=== PATIENT | female | born 1940 | race Caucasian/White ===

== ENCOUNTER 2018-10-29 12:52 | Inpatient (IN) ==
--- NOTE | 2018-10-29 17:42 | Internal Med History&Physical ---
Date of Encounter: 10/29/18 Time of Encounter: 17:38 Internal Medicine - H&P: HPI History of present illness: Ms. Jacinto is a 78 year old female with history of CAD s/p CABG, IDDM, CKD stage III, remote lung and breast cancer, HTN, CVA s/p craniotomy presented as a transfer from [place] for evaluation of elevated troponin. Patient initially presented to [place] due to weakness and chills. She fell multiple times in the past few days. One day ago she was down for about an hour but she refused to go to hospital for evaluation. She was urged today by a caregiver to go directly for evaluation. She complains of several day history of dry cough, chills, night sweats. At [place] ED she waas found to have O2 saturation of 89% and after 3 L O2 improved to 97%. Troponin was 0.174 and patient was without chest pain. EKG showed sinus rhythm with first degree av block, and non-specific ST changes with T wave inversions in II, III, avf. She had an elevated creatinine at 2.20, and baseline is about 1.4. Lactic acid was within normal limits, afebrile, WBC borderline elevated at 11k. She was started on a heparin drip, given one liter normal saline, Xopenex, and IV protonix. Patient currently denies any CP, SOB. She still has persistent dry cough and complains of sinus congestion and rhinorrhea. Family history reviewed and non-contributory. Past Med Surg Social Fam HX - Past Medical History Medical history: CVA, diabetes, hyperlipidemia, hypertension, seizures Psychiatric history: depression - Past Surgical History Additional surgical history: brain anuerysm repair - Social History Smoking Status: Former smoker Smokeless Tobacco Status: No Alcohol use: none Drug use: none Internal Medicine - H&P: Meds Albuterol Sulfate [Albuterol Inhaler] 2 puff IH Q4HR PRN #1 hfa.aer.ad 12/06/15 [Rx] Aspirin Enteric Coated [Aspirin EC] 81 mg PO DAILY 12/06/15 [History] Citalopram Hydrobromide [Celexa] 30 mg PO DAILY 12/06/15 [History] Fluticasone Propionate Nasal [Flonase] 2 spray NS DAILY PRN 12/06/15 [History] Glimepiride [Amaryl] 4 mg PO DAILY 12/06/15 [History] LevETIRAcetam [Keppra] 750 mg PO BID 12/06/15 [History] Magnesium Oxide [Magnesium] 400 mg PO BID 12/06/15 [History] Montelukast [Singulair] 10 mg PO DAILY 12/06/15 [History] Acetaminophen [Tylenol] 1,000 mg PO PRN PRN 10/29/18 [History] Allopurinol [Zyloprim] 300 mg PO DAILY 10/29/18 [History] Atorvastatin [Lipitor] 40 mg PO HS 10/29/18 [History] Carvedilol [Coreg] 25 mg PO BID 10/29/18 [History] Cetirizine HCl [24Hour Allergy] 5 mg PO DAILY 10/29/18 [History] Ergocalciferol (VITAMIN D2) [Vitamin D2] 50,000 unit PO TU 10/29/18 [History] Gabapentin [Neurontin] 300 mg PO TID PRN 10/29/18 [History] Insulin Glargine,Hum.rec.anlog [Lantus Solostar] 45 unit SQ DAILY 10/29/18 [History] Nitroglycerin 0.3 mg SL Q5MIN PRN 10/29/18 [History] Pantoprazole Sodium [Protonix] 40 mg PO DAILY 10/29/18 [History] hydrALAZINE [HydrALAZINE] 25 mg PO BID 10/29/18 [History] Allergy/AdvReac Type Severity Reaction Status Date / Time acetaminophen [From [place]] Allergy Rash Verified 12/06/15 12:01 ciprofloxacin [From Cipro] Allergy See Verified 12/06/15 12:01 Comments codeine Allergy See Verified 12/06/15 12:01 Comments hydrocodone [From [place]] Allergy Rash Verified 12/06/15 12:01 Iodinated Contrast- Oral and Allergy See Verified 12/06/15 12:01 IV Dye Comments [Iodinated Contrast Media - IV Dye] levofloxacin [From Levaquin] Allergy See Verified 12/06/15 12:01 Comments losartan [From Cozaar] Allergy See Verified 12/06/15 12:01 Comments All Systems PM: A 10-system review of systems was performed and is negative for pertinent findings except as documented above in the HPI. - Constitutional Vitals: Temp Pulse Resp BP Pulse Ox 97.6 F 82 14 145/64 93 10/29/18 16:12 10/29/18 16:12 10/29/18 16:12 10/29/18 16:12 10/29/18 16:12 General appearance: Present: A&O X 3, no acute distress, answers questions appropriately Exam: . - Head Head exam: Present: atraumatic, normocephalic - Eye Eye exam: Present: PERRL, conjuntiva pink, sclera anicteric Pupils: Present: PERRL - ENT ENT exam: Present: mucous membranes dry Additional comments: Clear nasal discharge. - Expanded ENT Exam Mouth exam: Present: dry mucosa Throat exam: Present: normal inspection - Neck Neck exam general surgery: Present: supple, trachea midline. Absent: lymphadenopathy Additional comments: NO JVD - Respiratory Respiratory exam: Present: decreased breath sounds, wheezes. Absent: accessory muscle use, rales, rhonchi - Cardiovascular Cardiovascular exam: Present: RRR, +S1, +S2. Absent: diastolic murmur, gallop, rubs, systolic murmur - GI/Abdominal GI/Abdominal exam: Present: normal bowel sounds, soft, no peritoneal signs. Absent: distended, tenderness - Extremities Exam Extremities exam: Present: warm, radial pulses palpable and symmetrical. Absent : calf tenderness, cyanotic, pedal edema - Neurological Exam Neurological exam: Present: CN II-XII intact, oriented X3, no focal deficits. Absent: pronater drift, facial droop, speech deficit - Skin Skin exam: Present: dry, intact Internal Med - H&P Results - Labs CBC & Chem 7: 10/29/18 19:18 10/29/18 19:18 - Assessment and Plan (1) Acute respiratory failure with hypoxia Current Visit: Yes Status: Acute Assessment and plan: Patient presented to [facility] after a fall and was found to have hypoxia with O2 86% on room air then requiring 3 L O2 supplementation. She has no formally diagnosed asthma or COPD per her daughter at bedside, but does say that she takes inhalers at home for SOB. Chest x-ray at outside facility read as no acute process. She did have noted wheezing on exam, no acute respiratory distress. Does have sick contacts with recent respiratory infections as well. Will obtain CT chest without contrast for further evaluation. Obtain sputum culture, Duo Nebs prn. Does not appear to need steroids but if symptoms persist may need to start steroid therapy. Check respiratory infection panel, continue cardiac workup. Anticipate patient will be here for greater than two midnights. (2) Elevated troponin Current Visit: Yes Status: Acute Assessment and plan: EKG showed ST changes and T wave inversions with normal sinus rhythm. Troponin was 0.174 Cycle cardiac enzymes Continue Heparin drip Cardiology consultation (3) Acute on chronic kidney failure Current Visit: Yes Status: Acute Assessment and plan: Baseline creatinine is 1.4, at [place] Cr was 2.20. She follows Dr. Osuna as outpatient. Likely dehydration cause of CHRISTIAN on CKD. Continue gentle IV fluid hydration and recheck labs. CPK was within normal limits, does not appear to be rhabdo. Qualifiers: Acute renal failure type: unspecified Chronic kidney disease stage: stage 3 (moderate) Qualified Code(s): N17.9 - Acute kidney failure, unspecified; N18.3 - Chronic kidney disease, stage 3 (moderate) (4) Chronic kidney disease, stage 3 Current Visit: Yes Status: Acute (5) Weakness Current Visit: Yes Status: Acute Assessment and plan: According to daughter at bedside this is progressive. Has had multiple falls however in the last few weeks. CT head showed no acute process, did show a known remote parietal craniotomy otherwise negative. PT/OT evaluation, continue medical management of respiratory failure and monitor for improvement. (6) URI (upper respiratory infection) Current Visit: Yes Status: Acute Assessment and plan: Seems to be viral in nature, patient afebrile, WBC borderline elevated at 11k, non-toxic appearing but she does appear weak. Will check RIP and monitor vital signs. Qualifiers: URI type: unspecified viral URI Qualified Code(s): J06.9 - Acute upper respiratory infection, unspecified (7) Hypertension Current Visit: Yes Status: Acute Assessment and plan: Resume home medications once rec done. Qualifiers: Hypertension type: essential hypertension Qualified Code(s): I10 - Essential (primary) hypertension (8) GERD (gastroesophageal reflux disease) Current Visit: Yes Status: Acute Qualifiers: Esophagitis presence: esophagitis presence not specified Qualified Code(s): K21.9 - Gastro-esophageal reflux disease without esophagitis (9) Coronary artery disease Current Visit: Yes Status: Acute Assessment and plan: Resume home medications when med rec complete. Qualifiers: Coronary Disease-Associated Artery/Lesion type: [place] artery [place] vs. transplanted heart: [place] heart Associated angina: without angina Qualified Code(s): I25.10 - Atherosclerotic heart disease of [place] coronary artery without angina pectoris (10) Insulin dependent diabetes mellitus Current Visit: Yes Status: Acute Assessment and plan: Insulin sliding scale, diabetic diet Med rec pending. (11) Falls Current Visit: Yes Status: Acute Assessment and plan: According to daughter at bedside this is progressive. Has had multiple falls however in the last few weeks. CT head showed no acute process, did show a known remote parietal craniotomy otherwise negative. PT/OT evaluation, continue medical management of respiratory failure and monitor for improvement. Most recently she fell at 9 am and was down for about an hour. Not likely rhabdo since CPK done was within normal limits. She denies any history of LOC or hitting head. If patient is continued fall risk, this will need addressed should patient need any [facility] anticoagulation therapy. Qualifiers: Encounter type: initial encounter Qualified Code(s): W19.XXXA - Unspecified fall, initial encounter - Time Spent With Patient Total time spent is greater than 50% in coordination of care (as documented) at patient's floor/unit and/or counseling patient:
[2018-10-29] MEDS ORDERED: Melatonin 3 MG TABLET PO PRN (18:18)
[2018-10-29] MEDS ORDERED: Ondansetron 4 MG/2 ML VIAL IVP PRN (18:18)
[2018-10-29] MEDS ORDERED: Naloxone 0.4 MG/ML INJ IVP PRN (18:18)
[2018-10-29] MEDS ORDERED: *HR* Heparin 5,000 UNIT/ML VIAL IVP PRN ×2 (18:29)
[2018-10-29] MEDS ORDERED: *HR* Heparin 5,000 UNIT/ML VIAL IVP ONE (18:29)
[2018-10-29 19:39] LABS: Basophils % 0.1 %; Eosinophils # 0.2 K/mcL (0.0-0.6); Eosinophils % 3.5 %; Hematocrit 30.9 % (35.3-44.9); Immature Granulocytes % 0.4 % (0-4); Lymphocytes # 1.2 K/mcL (0.6-4.6); Lymphocytes % 17.9 %; Mean Corpuscular HGB Conc 32.4 g/dL (31.6-35.5); Mean Corpuscular Hemoglobin 31.3 pg (28.0-33.3); Mean Corpuscular Volume 96.6 fL (83.0-100.0); Mean Platelet Volume 10.1 fL (9.4-12.4); Monocytes # 0.4 K/mcL (0.0-1.3); Monocytes % 6.3 %; Neutrophils # 4.9 K/mcL (1.6-8.9); Platelet Count 163 K/mcL (140-400); Red Cell Distribution Width 14.3 % (11.5-14.5); Segmented Neutrophils % 71.8 %
[2018-10-29 20:00] LABS: Heparin anti-factor XA UFH 0.32 IU/mL (0.30-0.70)
[2018-10-29 20:01] LABS: Chol/HDL Ratio 3.6 (0-4.9)
[2018-10-29 20:01] LABS: INR 1.2; Prothrombin Time 13.3 Seconds (9.4-12.1)
[2018-10-29 20:03] LABS: Calcium 9.4 mg/dL (8.6-10.3); Potassium 3.8 mEq/L (3.5-5.1)
[2018-10-29 20:04] LABS: Albumin 3.7 g/dL (3.5-5.7); Albumin/Globulin Ratio 1.3 (1.1-2.2); Bilirubin,Direct 0.1 mg/dL (0.0-0.2); Bilirubin,Indirect 0.5 mg/dL (0.0-1.2); Bilirubin,Total 0.6 mg/dL (0.3-1.0); Globulin 2.8 g/dL (2.4-3.5); Total Protein 6.5 g/dL (6.4-8.9)
[2018-10-29 20:11] LABS: Troponin I 0.13 ng/mL (< 0.04)
[2018-10-29 20:17] LABS: Thyroid Stimulating Hormone 2.421 mcIU/mL (0.340-5.600)
[2018-10-29 20:26] LABS: Folate 22.1 ng/mL (3.0-16.0)
[2018-10-29] MEDS: Ipratropium/Albuterol Neb 3 ML IH SCH (21:17)
[2018-10-29] MEDS ORDERED: Fluticasone Propionate Nasal 50 MCG/SPRAY BOTTLE NS PRN (21:43)
[2018-10-29] MEDS: Heparin 25,000 UNIT/250 ML D5W 25,000 UNIT/250 ML IV.SOLN IVC SCH (21:55)
[2018-10-29] MEDS: 0.9 % Sodium Chloride 1,000 ML IVC SCH (22:02)
[2018-10-29] MEDS: hydrALAZINE 25 MG TABLET PO SCH (22:08)
[2018-10-29] MEDS: Insulin LISPRO 300 UNITS/3 ML VIAL SQ SCH (23:09)
[2018-10-30] MEDS: Ipratropium/Albuterol Neb 3 ML IH SCH ×7 (00:28→23:49)
[2018-10-30 01:57] LABS: Basophils % 0.3 %; Eosinophils # 0.3 K/mcL (0.0-0.6); Eosinophils % 3.5 %; Hematocrit 28.9 % (35.3-44.9); Hemoglobin 9.6 g/dL (11.5-15.4); Immature Granulocytes % 0.5 % (0-4); Lymphocytes # 1.2 K/mcL (0.6-4.6); Lymphocytes % 15.2 %; Mean Corpuscular HGB Conc 33.2 g/dL (31.6-35.5); Mean Corpuscular Hemoglobin 31.8 pg (28.0-33.3); Mean Corpuscular Volume 95.7 fL (83.0-100.0); Monocytes # 0.5 K/mcL (0.0-1.3); Monocytes % 6.8 %; Neutrophils # 5.8 K/mcL (1.6-8.9); Platelet Count 162 K/mcL (140-400); Red Blood Count 3.02 M/mcL (3.82-4.97); Red Cell Distribution Width 14.4 % (11.5-14.5); Segmented Neutrophils % 73.7 %
[2018-10-30 02:17] LABS: Calcium 8.8 mg/dL (8.6-10.3); Potassium 3.8 mEq/L (3.5-5.1)
[2018-10-30 07:14] LABS: Adenovirus Not Detected (Not Detect); Bordetella Pertussis Not Detected (Not Detect); Chlamydophila pneumoniae Not Detected (Not Detect); Coronavirus 229E Not Detected (Not Detect); Coronavirus HKU1 Not Detected (Not Detect); Coronavirus NL63 Not Detected (Not Detect); Coronavirus OC43 Not Detected (Not Detect); Human Metapneumovirus Not Detected (Not Detect); Human Rhinovirus/Enterovirus Not Detected (Not Detect); Influenza A Subtype 2009 H1 Not Detected (Not Detect); Influenza A Untypeable Not Detected (Not Detect); Influenza B Not Detected (Not Detect); Mycoplasma pneumoniae Not Detected (Not Detect); Parainfluenza Virus 1 Not Detected (Not Detect); Parainfluenza Virus 2 Not Detected (Not Detect); Parainfluenza Virus 3 Not Detected (Not Detect); Parainfluenza Virus 4 Not Detected (Not Detect); Respiratory Syncytial Virus Not Detected (Not Detect)
[2018-10-30] MEDS: cefTRIAXone 1,000 MG in Water for inj. (sterile) 20 ML 10 ML IVP SCH (08:59)
[2018-10-30] MEDS: Azithromycin 500 MG in D5% in Water 250 ML IVPB SCH (09:00)
[2018-10-30] MEDS: 0.9 % Sodium Chloride 1,000 ML IVC SCH (09:09)
[2018-10-30] MEDS: Insulin LISPRO 300 UNITS/3 ML VIAL SQ SCH ×4 (09:10→20:50)
--- NOTE | 2018-10-30 09:33 | Cardiology Consult Note ---
Date of Encounter: 10/30/18 Time of Encounter: 09:30 Assessment and Plan (1) Elevated troponin Current Visit: Yes Status: Acute History of CAD sp CABG with CHRISTIAN on CKD and no angina, suspect troponin is 2/2 demand ischemia with no history of angina. TTE ordered. No urgent indication for invasive evaluation w [facility] (2) Acute on chronic kidney failure Current Visit: Yes Status: Acute gentle hydration, likely prerenal from poor PO intake ?viral syndrome Qualifiers: Acute renal failure type: unspecified Chronic kidney disease stage: stage 3 (moderate) Qualified Code(s): N17.9 - Acute kidney failure, unspecified; N18.3 - Chronic kidney disease, stage 3 (moderate) (3) Coronary artery disease Current Visit: Yes Status: Acute Continue medical management Qualifiers: Coronary Disease-Associated Artery/Lesion type: [place] artery [place] vs. transplanted heart: [place] heart Associated angina: without angina Qualified Code(s): I25.10 - Atherosclerotic heart disease of [place] coronary artery without angina pectoris Discussion w patient/family: The assessment and plan as outlined above was discussed with the patient and/or family members who expressed understanding and agreement. All questions were answered. Thank you for involving us in the care of your patient. Please call with any questions. History of Present Illness Consult date: 10/30/18 Consult reason: palpitations Chief complaint: syncope History of present illness: Ms. Jacinto is a 78 year old female w history of CAD s/p CABG, IDDM, CKD stage III, remote lung and breast cancer, HTN, CVA s/p craniotomy presented as a transfer from [place] for evaluation of elevated troponin. Patient initially presented to [place] due to weakness and chills. She fell multiple times in the past few days. One day ago she was down for about an hour but she refused to go to hospital for evaluation. She was urged today by a caregiver to go directly for evaluation. She complains of several day history of dry cough, chills, night sweats. She denies any recent history of chest/jaw/arm discomfort. At [place] ED she was found to have O2 saturation of 89% and after 3 L O2 improved to 97%. Troponin was 0.174 and patient was without chest pain. She had an elevated creatinine at 2.20, and baseline is about 1.4. Lactic acid was within normal limits, afebrile, WBC borderline elevated at 11k. Patient currently denies any CP, SOB. She still has persistent dry cough and complains of sinus congestion and rhinorrhea. History obtained from medical records and patients. Past Med Surg Social Fam HX - Past Medical History Medical history: CVA, diabetes, hyperlipidemia, hypertension, seizures Psychiatric history: depression - Past Surgical History Additional surgical history: brain anuerysm repair - Social History Smoking Status: Former smoker Smokeless Tobacco Status: No Alcohol use: none Drug use: none Medications and Allergies Albuterol Sulfate [Albuterol Inhaler] 2 puff IH Q4HR PRN #1 hfa.aer.ad 12/06/15 [Rx] Aspirin Enteric Coated [Aspirin EC] 81 mg PO DAILY 12/06/15 [History] Citalopram Hydrobromide [Celexa] 30 mg PO DAILY 12/06/15 [History] Fluticasone Propionate Nasal [Flonase] 2 spray NS DAILY PRN 12/06/15 [History] Glimepiride [Amaryl] 4 mg PO DAILY 12/06/15 [History] LevETIRAcetam [Keppra] 750 mg PO BID 12/06/15 [History] Magnesium Oxide [Magnesium] 400 mg PO BID 12/06/15 [History] Montelukast [Singulair] 10 mg PO DAILY 12/06/15 [History] Acetaminophen [Tylenol] 1,000 mg PO Q6H PRN 10/29/18 [History] Allopurinol [Zyloprim] 300 mg PO DAILY 10/29/18 [History] Atorvastatin [Lipitor] 40 mg PO HS 10/29/18 [History] Carvedilol [Coreg] 25 mg PO BID 10/29/18 [History] Cetirizine HCl [24Hour Allergy] 5 mg PO DAILY 10/29/18 [History] Ergocalciferol (VITAMIN D2) [Vitamin D2] 50,000 unit PO TU 10/29/18 [History] Gabapentin [Neurontin] 300 mg PO TID PRN 10/29/18 [History] Insulin Glargine,Hum.rec.anlog [Lantus Solostar] 45 unit SQ DAILY 10/29/18 [History] Nitroglycerin 0.3 mg SL Q5MIN PRN 10/29/18 [History] Pantoprazole Sodium [Protonix] 40 mg PO DAILY 10/29/18 [History] hydrALAZINE [HydrALAZINE] 25 mg PO BID 10/29/18 [History] Allergy/AdvReac Type Severity Reaction Status Date / Time acetaminophen [From [place]] Allergy Rash Verified 12/06/15 12:01 ciprofloxacin [From Cipro] Allergy See Verified 12/06/15 12:01 Comments codeine Allergy See Verified 12/06/15 12:01 Comments hydrocodone [From [place]] Allergy Rash Verified 12/06/15 12:01 Iodinated Contrast- Oral and Allergy See Verified 12/06/15 12:01 IV Dye Comments [Iodinated Contrast Media - IV Dye] levofloxacin [From Levaquin] Allergy See Verified 12/06/15 12:01 Comments losartan [From Cozaar] Allergy See Verified 12/06/15 12:01 Comments All Systems Review: The remainder of the systems were reviewed and are negative - Constitutional Constitutional: chills, no fever(s) - EENT Eyes: no blurred vision, no loss of vision Nose, mouth and throat: no dysphagia, no odynophagia - Cardiovascular Cardiovascular: no chest pain at rest, no chest pain with exertion - Respiratory Respiratory: cough, dyspnea, no hemoptysis, no wheezing - Gastrointestinal Gastrointestinal: no hematemesis, no hematochezia - Genitourinary Genitourinary: no hematuria, no nocturia - Musculoskeletal Musculoskeletal: no muscle cramps, no muscle weakness - Integumentary Integumentary: no erythema, no unusual bruising - Neurological Neurological: no syncope, no tingling - Psychiatric Psychiatric: no hallucinations, no panic attacks - Hematological/Lymphatic Hematologic/Lymphatic: no easy bleeding, no easy bruising Physical Examination Vital Signs, Last 4 Hours Temp Pulse Resp BP Pulse Ox 10/30/18 07:16 16 95 10/30/18 06:49 98.5 F 87 134/55 General: Conversant Neck: No JVD Cardiac: Reg Rate and Rhythm Lungs: Normal Breath Sounds Neuro: Alert and responsive Abdomen: Soft Skin: No rashes noted on visualized skin Musculoskeletal: No Chest Wall Tenderness Extremities: Other (trace edema BL) Results 10/30/18 01:45 10/30/18 01:45 Lab Results 10/29/18 10/29/18 10/29/18 19:18 19:18 19:18 WBC 6.9 Hgb 10.0 L Hct 30.9 L Plt Count 163 INR Sodium 141 Potassium 3.8 Chloride 103 Carbon Dioxide 28 BUN 42 H Creatinine 1.82 H Glucose 152 H Calcium 9.4 Total Bilirubin 0.6 AST 12 L ALT 8 Alkaline Phosphatase 89 Troponin I 0.13 H* B-Natriuretic Peptide TSH 2.421 10/29/18 10/29/18 10/30/18 19:18 19:33 01:45 WBC 7.9 Hgb 9.6 L Hct 28.9 L Plt Count 162 INR 1.2 Sodium Potassium Chloride Carbon Dioxide BUN Creatinine Glucose Calcium Total Bilirubin AST ALT Alkaline Phosphatase Troponin I B-Natriuretic Peptide 147 H TSH 10/30/18 10/30/18 01:45 01:45 WBC Hgb Hct Plt Count INR Sodium 141 Potassium 3.8 Chloride 105 Carbon Dioxide 26 BUN 41 H Creatinine 1.64 H Glucose 221 H Calcium 8.8 Total Bilirubin AST ALT Alkaline Phosphatase Troponin I 0.11 H* B-Natriuretic Peptide TSH - EKG Interpretation EKG results cardiology: personally reviewed, sinus rhythm (lvh w strain) Consult Discharge Plan - Plan Referrals: NONE,PCP [Primary Care Provider] -
--- NOTE | 2018-10-30 09:56 | Internal Med Progress Note ---
Hospitalist Progress Note - Encounter Date of Encounter: 10/30/18 Time of Encounter: 09:53 - Subjective Interval History: Patient having intermittent episodes of confusion this morning. She is able to provide some history but it is limited due to confusion. She denies chest pain, SOB, n/v, fevers. Admits to dry cough and rhinorrhea. - Exam Vitals: Temp Pulse Resp BP Pulse Ox 98.5 F 87 16 134/55 95 10/30/18 06:49 10/30/18 06:49 10/30/18 07:16 10/30/18 06:49 10/30/18 07:16 Exam: Gen: NAD, confused but cooperative with exam ENT: MM dry, neck warm, supple, no LA Head: NC/AT CVS: RRR, no mrg Lungs: CTAB, decreased breath sounds, limited lung exam. Abd: soft, NT/ND Ext: no edema, no cyanosis. Skin: warm, dry . - Assessment and Plan (1) Acute respiratory failure with hypoxia Current Visit: Yes Status: Acute Assessment and Plan: Patient presented to [facility] after a fall and was found to have hypoxia with O2 86% on room air then requiring 3 L O2 supplementation. She has no formally diagnosed asthma or COPD per her daughter at bedside, but does say that she takes inhalers at home for SOB. Chest x-ray at outside facility read as no acute process. She did have noted wheezing on exam, no acute respiratory distress. Does have sick contacts with recent respiratory infections as well. Does not appear to need steroids but if symptoms persist may need to start steroid therapy. CT chest shows paramediastinal soft tissue attenuation worrisome for neoplasm. There is also radiation changes, likely from history of lung cancer in the past. There is a lower lobe consolidation, suspect lower respiratory tract infection could be cause. Continue cardiac workup Continue Duo Nebs as needed Rocephin/Azithromycin Anticipate patient will be here for greater than two midnights. (2) Elevated troponin Current Visit: Yes Status: Acute Assessment and Plan: EKG showed ST changes and T wave inversions with normal sinus rhythm. Troponin was 0.174 Cycle cardiac enzymes Continue Heparin drip Cardiology consultation (3) Acute on chronic kidney failure Current Visit: Yes Status: Acute Assessment and Plan: Baseline creatinine is 1.4, at [place] Cr was 2.20. She follows Dr. Osuna as outpatient. Likely dehydration cause of CHRISTIAN on CKD. Continue gentle IV fluid hydration and recheck labs. CPK was within normal limits, does not appear to be rhabdo. Cr today continues to improve, now 1.6. Still dry on exam, continue gentle iv fluid hydration. (4) Chronic kidney disease, stage 3 Current Visit: Yes Status: Acute (5) Weakness Current Visit: Yes Status: Acute Assessment and Plan: According to daughter at bedside this is progressive. Has had multiple falls however in the last few weeks. CT head showed no acute process, did show a known remote parietal craniotomy otherwise negative. PT/OT evaluation, continue medical management of respiratory failure and monitor for improvement. (6) Hypertension Current Visit: Yes Status: Acute Assessment and Plan: Resume home medications once rec done. (7) GERD (gastroesophageal reflux disease) Current Visit: Yes Status: Acute (8) Coronary artery disease Current Visit: Yes Status: Acute Assessment and Plan: Resume home medications when med rec complete. (9) Insulin dependent diabetes mellitus Current Visit: Yes Status: Acute Assessment and Plan: Insulin sliding scale, diabetic diet Med rec pending. (10) Falls Current Visit: Yes Status: Acute Assessment and Plan: According to daughter at bedside this is progressive. Has had multiple falls however in the last few weeks. CT head showed no acute process, did show a known remote parietal craniotomy otherwise negative. PT/OT evaluation, continue medical management of respiratory failure and monitor for improvement. Most recently she fell at 9 am and was down for about an hour. Not likely rhabdo since CPK done was within normal limits. She denies any history of LOC or hitting head. If patient is continued fall risk, this will need addressed should patient need any residential anticoagulation therapy. (11) Pneumonia Current Visit: Yes Status: Acute Assessment and Plan: Rocephin/azithromycin Does not appear septic. - Time Spent with Patient Total time spent is greater than 50% in coordination of care (as documented) at patient's floor/unit and/or counseling patient: Internal Medicine: Result - Labs CBC & Chem 7: 10/30/18 01:45 10/30/18 01:45 Labs: Short CBC 10/29/18 10/30/18 Range/Units 19:18 01:45 WBC 6.9 7.9 (4.3-11.1) K/mcL Hgb 10.0 L 9.6 L (11.5-15.4) g/dL Hct 30.9 L 28.9 L (35.3-44.9) % Plt Count 163 162 (140-400) K/mcL Neutrophils # 4.9 5.8 (1.6-8.9) K/mcL BMP 10/29/18 10/30/18 19:18 01:45 Sodium 141 141 Potassium 3.8 3.8 Chloride 103 105 Carbon Dioxide 28 26 BUN 42 H 41 H Creatinine 1.82 H 1.64 H Glucose 152 H 221 H Calcium 9.4 8.8 Cardiac Enzymes 10/29/18 10/30/18 10/30/18 Range/Units 19:18 01:45 08:17 Troponin I 0.13 H* 0.11 H* 0.09 H* (< 0.04) ng/mL Liver Function 10/29/18 Range/Units 19:18 Total Bilirubin 0.6 (0.3-1.0) mg/dL Direct Bilirubin 0.1 (0.0-0.2) mg/dL AST 12 L (13-39) Units/L ALT 8 (7-52) Units/L Alkaline Phosphatase 89 (34-104) Units/L Albumin 3.7 (3.5-5.7) g/dL - ABG Interpretation ABG results: PT/INR, D-dimer PT 13.3 Seconds (9.4-12.1) H 10/29/18 19:33 - Impressions Impressions Chest CT 10/29/18 18:17 IMPRESSION: Abnormal right paramediastinal soft tissue attenuation which is worrisome for neoplasm. Findings also completely related to treated neoplasm with radiation changes. Correlation is recommended. Comparison with prior studies would be helpful. Dependent lower lobe consolidation, greatest within the medial right lower lobe, atelectasis or pneumonia. D/ / Madisyn Salazar Cha, MD / Madisyn Salazar Cha, MD Interpreting Provider: Madisyn Salazar Cha, MD Consult Discharge Plan - Plan Referrals: NONE,PCP [Primary Care Provider] - (3) Acute on chronic kidney failure Qualifiers: Acute renal failure type: unspecified Chronic kidney disease stage: stage 3 (moderate) Qualified Code(s): N17.9 - Acute kidney failure, unspecified; N18.3 - Chronic kidney disease, stage 3 (moderate) (6) Hypertension Qualifiers: Hypertension type: essential hypertension Qualified Code(s): I10 - Essential (primary) hypertension (7) GERD (gastroesophageal reflux disease) Qualifiers: Esophagitis presence: esophagitis presence not specified Qualified Code(s): K21.9 - Gastro-esophageal reflux disease without esophagitis (8) Coronary artery disease Qualifiers: Coronary Disease-Associated Artery/Lesion type: [place] artery [place] vs. transplanted heart: [place] heart Associated angina: without angina Qualified Code(s): I25.10 - Atherosclerotic heart disease of [place] coronary artery without angina pectoris (10) Falls Qualifiers: Encounter type: initial encounter Qualified Code(s): W19.XXXA - Unspecified fall, initial encounter
[2018-10-30] MEDS: hydrALAZINE 25 MG TABLET PO SCH ×3 (10:16→20:49)
[2018-10-30] MEDS: Magnesium Oxide 400 MG TABLET PO SCH ×2 (10:16→20:49)
[2018-10-30] MEDS: Cholecalciferol (D-3) 1,000 UNIT TABLET PO SCH (10:16)
[2018-10-30] MEDS: Loratadine 10 MG TABLET PO SCH (10:16)
[2018-10-30] MEDS: levETIRAcetam 250 MG TABLET PO SCH ×3 (10:16→20:49)
[2018-10-30] MEDS: Aspirin Enteric Coated 81 MG Tablet PO SCH ×2 (10:16→12:22)
[2018-10-30] MEDS ORDERED: Nitroglycerin 0.4 MG TAB.SUBL SL ONE (23:29)
[2018-10-30] MEDS ORDERED: *HR* Metoprolol 5 MG/5 ML VIAL IVP ONE ×2 (23:37→23:38)
[2018-10-30] MEDS ORDERED: *HR* Morphine 2 MG/ML SYRINGE IVP ONE (23:45)
[2018-10-30] MEDS: Nitroglycerin 0.4 MG TAB.SUBL SL PRN ×2 (23:49→23:54)
[2018-10-30] MEDS ORDERED: Furosemide 20 MG/2 ML VIAL IVP ONE ×2 (23:55→23:58)
[2018-10-31 00:05] LABS: ABG Base Excess 2 mEq/L (-2 to 3); ABG HCO3 27 mEq/L (21-27); ABG Oxygen Saturation 97 % (95-98); ABG PCO2 44 mmHg (35-45); ABG PO2 86 mmHg (85-104); ABG TCO2 29 mEq/L (20-26)
[2018-10-31] MEDS ORDERED: *HR* LORazepam 2 MG/ML VIAL IVP ONE (00:06)
[2018-10-31] MEDS ORDERED: methylPREDNISolone 125 MG/2 ML VIAL IVP ONE ×2 (00:06→00:09)
[2018-10-31] MEDS ORDERED: *HR* LORazepam 2 MG/ML VIAL ONE (00:10)
[2018-10-31] MEDS ORDERED: methylPREDNISolone 125 MG/2 ML VIAL ONE (00:11)
[2018-10-31] MEDS ORDERED: diazePAM 10 MG/2 ML SYRINGE IVP ONE (00:30)
[2018-10-31] MEDS ORDERED: Racepinephrine Neb 0.5 ML VIAL IH ONE ×2 (00:43→00:45)
[2018-10-31] MEDS: Heparin 25,000 UNIT/250 ML D5W 25,000 UNIT/250 ML IV.SOLN IVC SCH (02:16)
[2018-10-31 02:18] LABS: Basophils % 0.3 %; Eosinophils # 0.1 K/mcL (0.0-0.6); Eosinophils % 0.9 %; Hematocrit 33.9 % (35.3-44.9); Immature Granulocytes % 0.6 % (0-4); Lymphocytes # 0.6 K/mcL (0.6-4.6); Lymphocytes % 4.8 %; Mean Corpuscular HGB Conc 32.4 g/dL (31.6-35.5); Mean Corpuscular Hemoglobin 31.2 pg (28.0-33.3); Monocytes # 0.3 K/mcL (0.0-1.3); Monocytes % 2.7 %; Neutrophils # 11.2 K/mcL (1.6-8.9); Platelet Count 200 K/mcL (140-400); Red Blood Count 3.53 M/mcL (3.82-4.97); Red Cell Distribution Width 14.3 % (11.5-14.5); Segmented Neutrophils % 90.7 %
[2018-10-31 02:32] LABS: Calcium 9.4 mg/dL (8.6-10.3); Potassium 4.3 mEq/L (3.5-5.1)
[2018-10-31] MEDS: Ipratropium/Albuterol Neb 3 ML IH SCH ×5 (04:57→20:29)
[2018-10-31] MEDS: Insulin LISPRO 300 UNITS/3 ML VIAL SQ SCH ×5 (05:10→20:19)
--- NOTE | 2018-10-31 07:20 | Event Note ---
Date of Encounter: 10/31/18 Time of Encounter: 07:19 - Cardiology Event Note Mild, adynamic troponins in the setting of CHRISTIAN, respiratory failure, and PNA. TTE with LVEF preserved, no wall motion abnormalities. Troponins demand ischemia, NO cardiac rehab consult warranted. Consider outpatient stress test. Cardiology will sign off, will arrange outpatient follow up.
--- NOTE | 2018-10-31 07:21 | Event Note ---
Date of Encounter: 10/30/18 Time of Encounter: 23:19 Alerted by pts. nurse YEHUDA Rosado that the pt. was becoming agitated, confused, asking for help, and grabbing her chest stating that she was having CP. Nurse instructed to order stat EKG and troponin. Went to see the pt. immediately who was in bed and asking for help over and over. Pt. appeared confused and very anxious. Pt. was on Oxymask and was belly breathing. SL nitro given. Pt. was tachycardic w/HR >140 and BP of 215/[address] Lozada paged to come see the pt. One-time order 5 mg IVP metoprolol placed and given. Stat ABG ordered. Pts. HR and BP began to respond to the metoprolol. One-time order for 1 mg Ativan IV push placed by Dr. Lozada. 125 mg IVP Solu-Medrol ordered. Pt. was now beginning to calm down but had audible wheezes and continued to belly breathe. Pts. breathing continued to be labored, so one-time order of Valium 2.5 mg IVP placed as well as 2 mg IVP morphine by Dr. Lozada to help pts. breathing. Concern for breathing compromise d/t neck muscle use and continued labored breathing, so soft tissue XR of the neck ordered which showed image quality similar limited by nonstandard positioning. Epiglottis is not identified. There was triphasic GI all soft tissues are not thickened. No airway narrowing is identified. There is cervical spondylosis. Limited study with no definite acute abnormality. CT of the head w/o contrast ordered by Dr. Lozada which showed no acute intracranial abnormality. Small vessel chronic ischemic changes and left-sided encephalomalacia. Dr. Lozada discussed pt. w/Bed Management w/plan to transfer to ICU for closer monitoring. ICU10 secured and pt. moved from 2NE32 to ICU10.
--- NOTE | 2018-10-31 09:15 | Internal Med Progress Note ---
Hospitalist Progress Note - Encounter Date of Encounter: 10/31/18 Time of Encounter: 09:13 - Subjective Interval History: Event notes overnight reviewed, discussed with overnight provider. Patient became acutely agitated and was complaining of chest pain and was hypertensive and tachycardic. She required IV metoprolol and IV Ativan. Vitals improved. She had X-ray neck to rule out acute swelling. Transferred to ICU overnight for closer monitoring. Family is at bedside this AM. Patient says she doesn't feel good, with no other complaints. She appears confused, denies CP, SOB, N/V, fevers, palpitations - Exam Vitals: Temp Pulse Resp BP Pulse Ox 98.0 F 97 15 154/78 99 10/31/18 08:11 10/31/18 09:00 10/31/18 09:00 10/31/18 09:00 10/31/18 09:00 Exam: Gen: NAD, confused ENT: MM dry, neck warm, supple, no LA Head: NC/AT CVS: RRR, no mrg Lungs: decreased breath sounds, limited lung exam due to patient positioning an compliance with sitting upright. Mild resp distress, wheezing. Abd: soft, NT/ND Ext: no edema, no cyanosis. Skin: warm, dry . - Assessment and Plan (1) Acute respiratory failure with hypoxia Current Visit: Yes Status: Acute Assessment and Plan: [facility] and was found to have hypo agus with O2 86% on room air then requiring 3 L O2 supplementation. She has no formally diagnosed asthma or COPD per her daughter at bedside, but does say that she takes inhalers at home for SOB. Chest x-ray at outside facility read as no acute process. She did have noted wheezing on exam, no acute respiratory distress. Does have sick contacts with recent respiratory infections as well. Does not appear to need steroids but if symptoms persist may need to start steroid therapy. CT chest shows paramediastinal soft tissue attenuation worrisome for neoplasm. There is also radiation changes, likely from history of lung cancer in the past. There is a lower lobe consolidation, suspect lower respiratory tract infection could be cause. Continue cardiac workup Continue Duo Nebs Rocephin/Azithromycin Begin steroids. Anticipate patient will be here for greater than two midnights. (2) Elevated troponin Current Visit: Yes Status: Acute Assessment and Plan: EKG showed ST changes and T wave inversions with normal sinus rhythm. Troponin was 0.174 prior to transfer, at [facility] then improved to 0.13 and 0.09. Likely demand ischemia. No further workup needed, Cardiology signed off, heparin drip discontinued. (3) Acute on chronic kidney failure Current Visit: Yes Status: Acute Assessment and Plan: Baseline creatinine is 1.4, at [place] [facility] was 2.20. She follows Dr. Osuna as outpatient. Likely dehydration cause of CHRISTIAN on CKD. Continue gentle IV fluid hydration and recheck labs. CPK was within normal limits, does not appear to be rhabdo. Cr today continues to improve, now 1.49. appears euolemic today, IV fluids discontinued. (4) Chronic kidney disease, stage 3 Current Visit: Yes Status: Acute (5) Weakness Current Visit: Yes Status: Acute Assessment and Plan: According to daughter at bedside this is progressive. Has had multiple falls however in the last few weeks. CT head showed no acute process, did show a known remote parietal craniotomy otherwise negative. PT/OT evaluation, continue medical management of respiratory failure and monitor for improvement. (6) Hypertension Current Visit: Yes Status: Acute Assessment and Plan: Continue home medications (7) GERD (gastroesophageal reflux disease) Current Visit: Yes Status: Acute (8) Coronary artery disease Current Visit: Yes Status: Acute Assessment and Plan: Resume home medications (9) Insulin dependent diabetes mellitus Current Visit: Yes Status: Acute Assessment and Plan: Insulin sliding scale, diabetic diet (10) Falls Current Visit: Yes Status: Acute Assessment and Plan: According to daughter at bedside this is progressive. Has had multiple falls however in the last few weeks. CT head showed no acute process, did show a known remote parietal craniotomy otherwise negative. PT/OT evaluation, continue medical management of respiratory failure and monitor for improvement. Most recently she fell at 9 am and was down for about an hour. Not likely rhabdo since CPK done was within normal limits. She denies any history of LOC or hitting head. Continue fall precautions (11) Pneumonia Current Visit: Yes Status: Acute Assessment and Plan: Rocephin/azithromycin Does not appear septic. - Time Spent with Patient Total time spent is greater than 50% in coordination of care (as documented) at patient's floor/unit and/or counseling patient: Internal Medicine: Result - Labs CBC & Chem 7: 10/31/18 02:00 10/31/18 02:00 Labs: Short CBC 10/31/18 Range/Units 02:00 WBC 12.3 H D (4.3-11.1) K/mcL Hgb 11.0 L (11.5-15.4) g/dL Hct 33.9 L (35.3-44.9) % Plt Count 200 (140-400) K/mcL Neutrophils # 11.2 H (1.6-8.9) K/mcL BMP 10/31/18 02:00 Sodium 140 Potassium 4.3 Chloride 102 Carbon Dioxide 25 BUN 31 H Creatinine 1.49 H Glucose 335 H Calcium 9.4 Cardiac Enzymes 10/30/18 10/30/18 Range/Units 08:17 23:54 Troponin I 0.09 H* 0.09 H* (< 0.04) ng/mL - ABG Interpretation ABG results: ABG ABG pH 7.40 pH Units (7.32-7.45) 10/31/18 00:01 ABG pCO2 44 mmHg (35-45) 10/31/18 00:01 ABG pO2 86 mmHg (85-104) 10/31/18 00:01 ABG O2 Saturation 97 % (95-98) 10/31/18 00:01 PT/INR, D-dimer PT 13.3 Seconds (9.4-12.1) H 10/29/18 19:33 - Impressions Impressions Echocardiogram 10/29/18 18:16 Impressions: LVEF 60-65%. Normal LV chamber size, wall thickness and function. Atypical septal motion consistent with bundle branch block. Moderate left ventricular diastolic dysfunction. Normal right ventricular structure and function. No evidence of pulmonary hypertension. No significant valvular dysfunction. Left Ventricular Wall Motion: Rest Echo Findings All wall segments showed normal motion. Findings: Study Quality * Technically sub-optimal due to poor echocardiographic windows. ECG Findings * Normal sinus rhythm, bundle branch block. Left Ventricle * LVEF 60-65%. * Normal LV chamber size, wall thickness and function. * Atypical septal motion consistent with bundle branch block. * Moderate left ventricular diastolic dysfunction. Right Ventricle * Normal right ventricular structure and function. Left Atrium * Mildly dilated left atrium. Right Atrium * Normal right atrial size. Aortic Valve * Aortic valve not well visualized. * Grossly, sclerotic aortic valve leaflets. * Trace aortic regurgitation. * No aortic stenosis. Mitral Valve * Normal mitral valve structure and function. * No mitral stenosis. * Trace mitral regurgitation. Tricuspid Valve * Normal tricuspid valve structure and function. * Trace tricuspid regurgitation. * No evidence of pulmonary hypertension. Pulmonic Valve * Normal pulmonic valve structure and function. * Trace pulmonic regurgitation. Aorta * Normally sized aortic root. Pericardium * The pericardium appears normal. IVC * Normal IVC dimensions and inspiratory collapse. Pulmonary Artery * Pulmonary artery not well visualized. Chest X-Ray 10/31/18 00:02 IMPRESSION: Patchy bilateral airspace disease. Multifocal pneumonia is primarily considered, but pulmonary edema is also a differential consideration. D/ / Oleg Suggs MD / Oleg Suggs MD Interpreting Provider: Oleg Suggs MD Soft Tissue Neck X-Ray 10/31/18 01:06 IMPRESSION: Limited study with no definite acute abnormality. D/ / Wili Patel MD / Wlii Patel MD Interpreting Provider: Wili Patel MD Head CT 10/31/18 02:25 IMPRESSION: No acute intracranial abnormality. Small vessel chronic ischemic changes and left-sided encephalomalacia. D/ / Wili Patel MD / Wili Patel MD Interpreting Provider: Wili Patel MD Consult Discharge Plan - Plan Referrals: NONE,PCP [Primary Care Provider] - (3) Acute on chronic kidney failure Qualifiers: Acute renal failure type: unspecified Chronic kidney disease stage: stage 3 (moderate) Qualified Code(s): N17.9 - Acute kidney failure, unspecified; N18.3 - Chronic kidney disease, stage 3 (moderate) (6) Hypertension Qualifiers: Hypertension type: essential hypertension Qualified Code(s): I10 - Essential (primary) hypertension (7) GERD (gastroesophageal reflux disease) Qualifiers: Esophagitis presence: esophagitis presence not specified Qualified Code(s): K21.9 - Gastro-esophageal reflux disease without esophagitis (8) Coronary artery disease Qualifiers: Coronary Disease-Associated Artery/Lesion type: [place] artery [place] vs. transplanted heart: [place] heart Associated angina: without angina Qualified Code(s): I25.10 - Atherosclerotic heart disease of [place] coronary artery without angina pectoris (10) Falls Qualifiers: Encounter type: initial encounter Qualified Code(s): W19.XXXA - Unspecified fall, initial encounter
[2018-10-31] MEDS: Aspirin Enteric Coated 81 MG Tablet PO SCH (09:24)
[2018-10-31] MEDS: Loratadine 10 MG TABLET PO SCH (09:25)
[2018-10-31] MEDS: levETIRAcetam 250 MG TABLET PO SCH ×2 (09:26→20:18)
[2018-10-31] MEDS: Magnesium Oxide 400 MG TABLET PO SCH ×2 (09:26→20:18)
[2018-10-31] MEDS: cefTRIAXone 1,000 MG in Water for inj. (sterile) 20 ML 10 ML IVP SCH (09:27)
[2018-10-31] MEDS: Azithromycin 500 MG in D5% in Water 250 ML IVPB SCH (09:29)
[2018-10-31] MEDS: hydrALAZINE 25 MG TABLET PO SCH ×2 (09:54→20:17)
[2018-10-31] MEDS: Cholecalciferol (D-3) 1,000 UNIT TABLET PO SCH (11:20)
[2018-10-31] MEDS: MethylPREDNISolone 40 MG/ML VIAL IVP SCH (15:48)
[2018-10-31] MEDS: *HR* Heparin 5,000 UNIT/ML VIAL SQ SCH (17:36)
[2018-11-01] MEDS: Ipratropium/Albuterol Neb 3 ML IH SCH ×7 (00:35→23:21)
[2018-11-01] MEDS: MethylPREDNISolone 40 MG/ML VIAL IVP SCH ×2 (01:12→07:55)
[2018-11-01] MEDS: Insulin LISPRO 300 UNITS/3 ML VIAL SQ SCH ×6 (01:13→20:56)
[2018-11-01] MEDS: Aspirin Enteric Coated 81 MG Tablet PO SCH (07:53)
[2018-11-01] MEDS: Loratadine 10 MG TABLET PO SCH (07:53)
[2018-11-01] MEDS: Magnesium Oxide 400 MG TABLET PO SCH ×2 (07:53→20:55)
[2018-11-01] MEDS: Cholecalciferol (D-3) 1,000 UNIT TABLET PO SCH (07:53)
[2018-11-01] MEDS: levETIRAcetam 250 MG TABLET PO SCH ×2 (07:53→20:55)
[2018-11-01] MEDS: hydrALAZINE 25 MG TABLET PO SCH ×2 (07:53→20:55)
[2018-11-01] MEDS: Azithromycin 500 MG in D5% in Water 250 ML IVPB SCH (07:54)
[2018-11-01] MEDS: cefTRIAXone 1,000 MG in Water for inj. (sterile) 20 ML 10 ML IVP SCH (07:55)
[2018-11-01] MEDS: *HR* Heparin 5,000 UNIT/ML VIAL SQ SCH ×2 (07:57→16:56)
[2018-11-01 08:12] LABS: Calcium 9.8 mg/dL (8.6-10.3); Potassium 3.6 mEq/L (3.5-5.1)
[2018-11-01 08:13] LABS: Basophils % 0.1 %; Hematocrit 30.6 % (35.3-44.9); Hemoglobin 10.2 g/dL (11.5-15.4); Immature Granulocytes % 0.8 % (0-4); Lymphocytes # 0.6 K/mcL (0.6-4.6); Lymphocytes % 6.2 %; Mean Corpuscular HGB Conc 33.3 g/dL (31.6-35.5); Mean Corpuscular Hemoglobin 31.3 pg (28.0-33.3); Mean Corpuscular Volume 93.9 fL (83.0-100.0); Mean Platelet Volume 10.5 fL (9.4-12.4); Monocytes # 0.4 K/mcL (0.0-1.3); Monocytes % 3.6 %; Neutrophils # 9.3 K/mcL (1.6-8.9); Platelet Count 206 K/mcL (140-400); Red Blood Count 3.26 M/mcL (3.82-4.97); Red Cell Distribution Width 13.9 % (11.5-14.5); Segmented Neutrophils % 89.3 %
[2018-11-01 08:29] LABS: Mycoplasma pneumoniae IgG 0.33 U/L (<=0.09)
--- NOTE | 2018-11-01 09:53 | Internal Med Progress Note ---
Hospitalist Progress Note - Encounter Date of Encounter: 11/01/18 Time of Encounter: 10:04 - Subjective Interval History: No acute events. Patient in no distress, confused. Up in chair. - Exam Vitals: Temp Pulse Resp BP Pulse Ox 98.0 F 91 16 156/91 96 11/01/18 00:26 11/01/18 07:28 11/01/18 07:28 11/01/18 07:28 11/01/18 07:28 Exam: Gen: NAD, confused ENT: MM dry, neck warm, supple, no LA Head: NC/AT CVS: RRR, no mrg Lungs: decreased breath sounds, lungs faint exp wheezing, better than yesterdays exam Abd: soft, NT/ND Ext: no edema, no cyanosis. Skin: warm, dry . - Assessment and Plan (1) Acute respiratory failure with hypoxia Current Visit: Yes Status: Acute Assessment and Plan: Patient presented to [facility] after a fall and was found to have hypoxia with O2 86% on room air then requiring 3 L O2 supplementation. She has no formally diagnosed asthma or COPD per her daughter at bedside, but does say that she takes inhalers at home for SOB. Chest x-ray at outside facility read as no acute process. She did have noted wheezing on exam, no acute respiratory distress. Does have sick contacts with recent respiratory infections as well. Does not appear to need steroids but if symptoms persist may need to start steroid therapy. CT chest shows paramediastinal soft tissue attenuation worrisome for neoplasm. There is also radiation changes, likely from history of lung cancer in the past. There is a lower lobe consolidation, suspect lower respiratory tract infection could be cause. Not likely cardiac after evaluation done. Continue Duo Nebs Rocephin/Azithromycin Medically stable, awaiting placement. (2) Elevated troponin Current Visit: Yes Status: Acute Assessment and Plan: EKG showed ST changes and T wave inversions with normal sinus rhythm. Troponin was 0.174 prior to transfer, at [facility] then improved to 0.13 and 0.09. Likely demand ischemia. No further workup needed, Cardiology signed off, heparin drip discontinued. (3) Acute on chronic kidney failure Current Visit: Yes Status: Acute Assessment and Plan: Baseline creatinine is 1.4, at [place] Cr was 2.20. She follows Dr. Osuna as outpatient. Likely dehydration cause of CHRISTIAN on CKD. Continue gentle IV fluid hydration and recheck labs. CPK was within normal limits, does not appear to be rhabdo. Cr today continues to improve. Euvolemic. (4) Chronic kidney disease, stage 3 Current Visit: Yes Status: Acute (5) Weakness Current Visit: Yes Status: Acute Assessment and Plan: According to daughter at bedside this is progressive. Has had multiple falls however in the last few weeks. CT head showed no acute process, did show a known remote parietal craniotomy otherwise negative. PT/OT evaluation, continue medical management of respiratory failure Weakness significantly improved, likely was deconditioning. (6) Hypertension Current Visit: Yes Status: Acute Assessment and Plan: Continue home medications (7) GERD (gastroesophageal reflux disease) Current Visit: Yes Status: Acute (8) Coronary artery disease Current Visit: Yes Status: Acute Assessment and Plan: Resume home medications (9) Insulin dependent diabetes mellitus Current Visit: Yes Status: Acute Assessment and Plan: Insulin sliding scale, diabetic diet Hyperglycemic, resume basal insulin. Start with Levemir 20 units BID SQ. Takes Lantus 45 units at home. (10) Falls Current Visit: Yes Status: Acute Assessment and Plan: According to daughter at bedside this is progressive. Has had multiple falls however in the last few weeks. CT head showed no acute process, did show a known remote parietal craniotomy otherwise negative. PT/OT evaluation, continue m edical management of respiratory failure and monitor for improvement. Most recently she fell at 9 am and was down for about an hour. Not likely rhabdo since CPK done was within normal limits. She denies any history of LOC or hitting head. Continue fall precautions (11) Pneumonia Current Visit: Yes Status: Acute Assessment and Plan: Rocephin/azithromycin Does not appear septic. - Summary of Assessment and Plan Summary of Assessment and Plan: Awaiting placement. - Time Spent with Patient Total time spent is greater than 50% in coordination of care (as documented) at patient's floor/unit and/or counseling patient: Internal Medicine: Result - Labs CBC & Chem 7: 11/01/18 07:21 11/01/18 07:21 Labs: Short CBC 11/01/18 Range/Units 07:21 WBC 10.4 (4.3-11.1) K/mcL Hgb 10.2 L (11.5-15.4) g/dL Hct 30.6 L (35.3-44.9) % Plt Count 206 (140-400) K/mcL Neutrophils # 9.3 H (1.6-8.9) K/mcL BMP 11/01/18 07:21 Sodium 141 Potassium 3.6 Chloride 103 Carbon Dioxide 26 BUN 46 H Creatinine 1.37 H Glucose 282 H Calcium 9.8 - ABG Interpretation ABG results: ABG ABG pH 7.40 pH Units (7.32-7.45) 10/31/18 00:01 ABG pCO2 44 mmHg (35-45) 10/31/18 00:01 ABG pO2 86 mmHg (85-104) 10/31/18 00:01 ABG O2 Saturation 97 % (95-98) 10/31/18 00:01 PT/INR, D-dimer PT 13.3 Seconds (9.4-12.1) H 10/29/18 19:33 Consult Discharge Plan - Plan Referrals: NONE,PCP [Primary Care Provider] - (3) Acute on chronic kidney failure Qualifiers: Acute renal failure type: unspecified Chronic kidney disease stage: stage 3 (moderate) Qualified Code(s): N17.9 - Acute kidney failure, unspecified; N18.3 - Chronic kidney disease, stage 3 (moderate) (6) Hypertension Qualifiers: Hypertension type: essential hypertension Qualified Code(s): I10 - Essential (primary) hypertension (7) GERD (gastroesophageal reflux disease) Qualifiers: Esophagitis presence: esophagitis presence not specified Qualified Code(s): K21.9 - Gastro-esophageal reflux disease without esophagitis (8) Coronary artery disease Qualifiers: Coronary Disease-Associated Artery/Lesion type: [place] artery [place] vs. transplanted heart: [place] heart Associated angina: without angina Qualified Code(s): I25.10 - Atherosclerotic heart disease of [place] coronary artery without angina pectoris (10) Falls Qualifiers: Encounter type: initial encounter Qualified Code(s): W19.XXXA - Unspecified fall, initial encounter
[2018-11-01] MEDS: Insulin DETEMIR 100 UNIT/ML X5UNITS SQ SCH ×2 (10:59→20:56)
--- NOTE | 2018-11-01 17:53 | Electrocardiograph Report ---
[place] [id number] Test Date: 2018-10-30 Pat Name: Markos Jacinto Department: 111 Room: [facility] Gender: F Music Agent: SUNSHINE : [id number] Requested By: Nick Webb Order Number: [id number] Reading MD: Amelia Goss Measurements Intervals [place] Rate: 134 P: 76 GA: 188 QRS: 49 QRSD: 101 T: 64 QT: 365 QTc: 444 Interpretive Statements SINUS TACHYCARDIA NONSPECIFIC ST & T-WAVE ABNORMALITY Electronically Signed On 11-01-2018 17:51:58 EDT by Amelia Goss
[2018-11-02] MEDS: Insulin LISPRO 300 UNITS/3 ML VIAL SQ SCH ×6 (00:35→21:26)
[2018-11-02] MEDS: Ipratropium/Albuterol Neb 3 ML IH SCH ×6 (04:06→23:56)
[2018-11-02] MEDS: *HR* Heparin 5,000 UNIT/ML VIAL SQ SCH ×2 (05:33→17:09)
[2018-11-02 06:28] LABS: Basophils % 0.1 %; Hematocrit 32.8 % (35.3-44.9); Lymphocytes # 0.9 K/mcL (0.6-4.6); Lymphocytes % 6.1 %; Mean Corpuscular HGB Conc 33.5 g/dL (31.6-35.5); Mean Corpuscular Hemoglobin 31.1 pg (28.0-33.3); Mean Corpuscular Volume 92.7 fL (83.0-100.0); Mean Platelet Volume 10.1 fL (9.4-12.4); Monocytes # 0.7 K/mcL (0.0-1.3); Neutrophils # 12.7 K/mcL (1.6-8.9); Platelet Count 242 K/mcL (140-400); Red Blood Count 3.54 M/mcL (3.82-4.97); Segmented Neutrophils % 87.8 %
[2018-11-02 07:01] LABS: Calcium 9.9 mg/dL (8.6-10.3)
[2018-11-02] MEDS: Magnesium Oxide 400 MG TABLET PO SCH ×2 (08:00→21:25)
[2018-11-02] MEDS: levETIRAcetam 250 MG TABLET PO SCH ×2 (08:00→21:25)
[2018-11-02] MEDS: Loratadine 10 MG TABLET PO SCH (08:00)
[2018-11-02] MEDS: Aspirin Enteric Coated 81 MG Tablet PO SCH (08:01)
[2018-11-02] MEDS: Cholecalciferol (D-3) 1,000 UNIT TABLET PO SCH (08:01)
[2018-11-02] MEDS: predniSONE 20 MG TABLET PO SCH (08:02)
[2018-11-02] MEDS: cefTRIAXone 1,000 MG in Water for inj. (sterile) 20 ML 10 ML IVP SCH (08:02)
[2018-11-02] MEDS: hydrALAZINE 25 MG TABLET PO SCH ×2 (08:02→21:25)
[2018-11-02] MEDS: Azithromycin 500 MG in D5% in Water 250 ML IVPB SCH (08:04)
[2018-11-02] MEDS: Insulin DETEMIR 100 UNIT/ML X5UNITS SQ SCH ×2 (08:19→21:25)
--- NOTE | 2018-11-02 11:26 | Internal Med Progress Note ---
Hospitalist Progress Note - Encounter Date of Encounter: 11/02/18 Time of Encounter: 11:25 - Subjective Interval History: No acute events. Confused. No complaints. - Exam Vitals: Temp Pulse Resp BP Pulse Ox 97.8 F 101 18 161/81 96 11/02/18 04:16 11/02/18 08:00 11/02/18 08:00 11/02/18 08:00 11/02/18 08:00 Exam: Gen: NAD, confused ENT: MM dry, neck warm, supple, no LA Head: NC/AT CVS: RRR, no mrg Lungs: decreased breath sounds, wheezing faint Abd: soft, NT/ND Ext: no edema, no cyanosis. Skin: warm, dry . - Assessment and Plan (1) Acute respiratory failure with hypoxia Current Visit: Yes Status: Acute Assessment and Plan: Patient presented to [facility] after a fall and was found to have hypoxia with O2 86% on room air then requiring 3 L O2 supplementation. She has no formally diagnosed asthma or COPD per her daughter at bedside, but does say that she takes inhalers at home for SOB. Chest x-ray at outside facility read as no acute process. She did have noted wheezing on exam, no acute respiratory distress. Does have sick contacts with recent respiratory infections as well. Does not appear to need steroids but if symptoms persist may need to start steroid therapy. CT chest shows paramediastinal soft tissue attenuation worri some for neoplasm. There is also radiation changes, likely from history of lung cancer in the past. There is a lower lobe consolidation, suspect lower respiratory tract infection could be cause. Not likely cardiac after evaluation done. Continue Duo Nebs Rocephin/Azithromycin Prednisone 40 mg burst, will DC on day 5 Medically stable, awaiting placement. (2) Elevated troponin Current Visit: Yes Status: Acute Assessment and Plan: EKG showed ST changes and T wave inversions with normal sinus rhythm. Troponin was 0.174 prior to transfer, at [facility] then improved to 0.13 and 0.09. Likely demand ischemia. No further workup needed, Cardiology signed off, heparin drip discontinued. (3) Acute on chronic kidney failure Current Visit: Yes Status: Acute Assessment and Plan: Baseline creatinine is 1.4, at [place] [facility] was 2.20. She follows Dr. Osuna as outpatient. Likely dehydration cause of CHRISTIAN on CKD. Continue gentle IV fluid hydration and recheck labs. CPK was within normal limits, does not appear to be rhabdo. Cr today continues to improve. Euvolemic. (4) Chronic kidney disease, stage 3 Current Visit: Yes Status: Acute (5) Weakness Current Visit: Yes Status: Acute Assessment and Plan: According to daughter at bedside this is progressive. Has had multiple falls however in the last few weeks. CT head showed no acute process, did show a known remote parietal craniotomy otherwise negative. PT/OT evaluation, continue medical management of respiratory failure Weakness significantly improved, likely was deconditioning. (6) Hypertension Current Visit: Yes Status: Acute Assessment and Plan: Continue home medications (7) GERD (gastroesophageal reflux disease) Current Visit: Yes Status: Acute (8) Coronary artery disease Current Visit: Yes Status: Acute Assessment and Plan: Resume home medications (9) Insulin dependent diabetes mellitus Current Visit: Yes Status: Acute Assessment and Plan: Insulin sliding scale, diabetic diet Hyperglycemic, resume basal insulin. Start with Levemir 20 units BID SQ. Takes Lantus 45 units at home. (10) Falls Current Visit: Yes Status: Acute Assessment and Plan: According to daughter at bedside this is progressive. Has had multiple falls however in the last few weeks. CT head showed no acute process, did show a known remote parietal craniotomy otherwise negative. PT/OT evaluation, continue medical management of respiratory failure and monitor for improvement. Most recently she fell at 9 am and was down for about an hour. Not likely rhabdo since CPK done was within normal limits. She denies any history of LOC or hitting head. Continue fall precautions (11) Pneumonia Current Visit: Yes Status: Acute Assessment and Plan: Rocephin/azithromycin Does not appear septic. - Time Spent with Patient Total time spent is greater than 50% in coordination of care (as documented) at patient's floor/unit and/or counseling patient: Internal Medicine: Result - Labs CBC & Chem 7: 11/02/18 06:12 11/02/18 06:12 Labs: Short CBC 11/02/18 Range/Units 06:12 WBC 14.5 H (4.3-11.1) K/mcL Hgb 11.0 L (11.5-15.4) g/dL Hct 32.8 L (35.3-44.9) % Plt Count 242 (140-400) K/mcL Neutrophils # 12.7 H (1.6-8.9) K/mcL BMP 11/02/18 06:12 Sodium 138 Potassium 4.0 Chloride 101 Carbon Dioxide 27 BUN 47 H Creatinine 1.28 H Glucose 204 H Calcium 9.9 - ABG Interpretation ABG results: ABG ABG pH 7.40 pH Units (7.32-7.45) 10/31/18 00:01 ABG pCO2 44 mmHg (35-45) 10/31/18 00:01 ABG pO2 86 mmHg (85-104) 10/31/18 00:01 ABG O2 Saturation 97 % (95-98) 10/31/18 00:01 PT/INR, D-dimer PT 13.3 Seconds (9.4-12.1) H 10/29/18 19:33 Consult Discharge Plan - Plan Referrals: NONE,PCP [Primary Care Provider] - (3) Acute on chronic kidney failure Qualifiers: Acute renal failure type: unspecified Chronic kidney disease stage: stage 3 (moderate) Qualified Code(s): N17.9 - Acute kidney failure, unspecified; N18.3 - Chronic kidney disease, stage 3 (moderate) (6) Hypertension Qualifiers: Hypertension type: essential hypertension Qualified Code(s): I10 - Essential (primary) hypertension (7) GERD (gastroesophageal reflux disease) Qualifiers: Esophagitis presence: esophagitis presence not specified Qualified Code(s): K21.9 - Gastro-esophageal reflux disease without esophagitis (8) Coronary artery disease Qualifiers: Coronary Disease-Associated Artery/Lesion type: [place] artery [place] vs. transplanted heart: [place] heart Associated angina: without angina Qualified Code(s): I25.10 - Atherosclerotic heart disease of [place] coronary artery without angina pectoris (10) Falls Qualifiers: Encounter type: initial encounter Qualified Code(s): W19.XXXA - Unspecified fall, initial encounter
[2018-11-03] MEDS: Insulin LISPRO 300 UNITS/3 ML VIAL SQ SCH ×7 (03:26→21:45)
[2018-11-03] MEDS: Ipratropium/Albuterol Neb 3 ML IH SCH ×5 (04:19→20:44)
[2018-11-03] MEDS: *HR* Heparin 5,000 UNIT/ML VIAL SQ SCH ×2 (05:36→16:53)
--- NOTE | 2018-11-03 08:12 | Physician Discharge Referral ---
[facility] Referral Info Provider in Charge after Transfer: PCP Institutional Level of Care: Skilled - Diagnosis (1) Acute respiratory failure with hypoxia Priority: Primary Status: Resolved (2) Elevated troponin Priority: Secondary Status: Acute (3) Pneumonia Priority: Secondary Status: Acute (4) URI (upper respiratory infection) Priority: Secondary Status: Acute (5) CAD (coronary artery disease) Priority: Secondary Status: Chronic (6) Chronic kidney disease, stage 3 Priority: Secondary Status: Chronic (7) Falls Priority: Secondary Status: Chronic (8) Hypertension Priority: Secondary Status: Chronic (9) Insulin dependent diabetes mellitus Priority: Secondary Status: Chronic Prognosis: Fair Aware of Diagnosis: Patient Aware of Prognosis: Patient - Transfer Medications Prescriptions: RX: predniSONE [PredniSONE] 40 mg PO DAILY 3 Days #6 tablet Home Medications: RX: Albuterol Sulfate [Albuterol Inhaler] 2 puff IH Q4HR PRN #1 hfa.aer.ad 12/06/15 [Rx] RX: Aspirin Enteric Coated [Aspirin EC] 81 mg PO DAILY 12/06/15 [History] RX: Citalopram Hydrobromide [Celexa] 30 mg PO DAILY 12/06/15 [History] RX: Fluticasone Propionate Nasal [Flonase] 2 spray NS DAILY PRN 12/06/15 [History] RX: Glimepiride [Amaryl] 4 mg PO DAILY 12/06/15 [History] RX: LevETIRAcetam [Keppra] 750 mg PO BID 12/06/15 [History] RX: Magnesium Oxide [Magnesium] 400 mg PO BID 12/06/15 [History] RX: Montelukast [Singulair] 10 mg PO DAILY 12/06/15 [History] RX: Acetaminophen [Tylenol] 1,000 mg PO Q6H PRN 10/29/18 [History] RX: Allopurinol [Zyloprim] 300 mg PO DAILY 10/29/18 [History] RX: Atorvastatin [Lipitor] 40 mg PO HS 10/29/18 [History] RX: Carvedilol [Coreg] 25 mg PO BID 10/29/18 [History] RX: Cetirizine HCl [24Hour Allergy] 5 mg PO DAILY 10/29/18 [History] RX: Ergocalciferol (VITAMIN D2) [Vitamin D2] 50,000 unit PO TU 10/29/18 [History] RX: Gabapentin [Neurontin] 300 mg PO TID PRN 10/29/18 [History] RX: Insulin Glargine,Hum.rec.anlog [Lantus Solostar] 45 unit SQ DAILY 10/29/18 [History] RX: Nitroglycerin 0.3 mg SL Q5MIN PRN 10/29/18 [History] RX: Pantoprazole Sodium [Protonix] 40 mg PO DAILY 10/29/18 [History] RX: hydrALAZINE [HydrALAZINE] 25 mg PO BID 10/29/18 [History] RX: predniSONE [PredniSONE] 40 mg PO DAILY 3 Days #6 tablet 11/03/18 [Rx] Allergies/Adverse Reactions: Allergy/AdvReac Type Severity Reaction Status Date / Time acetaminophen [From [place]] Allergy Rash Verified 12/06/15 12:01 ciprofloxacin [From Cipro] Allergy See Verified 12/06/15 12:01 Comments codeine Allergy See Verified 12/06/15 12:01 Comments hydrocodone [From [place]] Allergy Rash Verified 12/06/15 12:01 Iodinated Contrast- Oral and Allergy See Verified 12/06/15 12:01 IV Dye Comments [Iodinated Contrast Media - IV Dye] levofloxacin [From Levaquin] Allergy See Verified 12/06/15 12:01 Comments losartan [From Cozaar] Allergy See Verified 12/06/15 12:01 Comments - Respiratory Orders Smoking Cessation: Smoking cessation has been advised. For more information, call the [place] Tobacco Quit Line at 7-347-IQHQ-NOW. - Advance Directives Code Status: Full Code - Mobility Orders Chair - Rehabiliation Orders Rehab Potential: Fair Rehab Orders: ROM Exercises, Evaluation for Physical Therapy, Evaluation for Occupational Therapy - Diet Orders Cardiac CERTIFICATION: I certify that the transfer of the above named patient to an Extended Care Facility is necessary for the continuing treatment of the diagnosis listed. The above information is true and accurate reflection of patient's current condition. Confidential - Redisclosure prohibited without a patient's written consent.
--- NOTE | 2018-11-03 08:12 | Discharge Summary ---
<Ruddy Jacinto S - Last Filed: 11/03/18 11:05> - NOTES TO OUTPATIENT PROVIDER Notes to Outpatient Provider: F/U with PCP in 1 week after d/c. Finish prednisone burst x 3 more days. Pt will be d/c with no abx. F/U with cardiology 1-[address] showed Abnormal right paramediastinal soft tissue attenuation which is worrisome for neoplasm. Findings also completely related to treated neoplasm with radiation changes. Correlation is recommended. Comparison with prior studies would be helpful. Recommend f/u of the soft tissue mass as an outpatient. Orders not resulted at time of discharge: Pending orders 10/29/18 18:19 Culture,Sputum with Gram Stain [RM] Routine Legionella Antigen [RM] Routine Streptococcal pneumoniae urin antigen [S. Pneumoniae Antigen] [RM] Routine 10/29/18 19:18 Culture,Blood [BC] Stat 10/31/18 06:50 EKG [ECG 12 lead ECG] [ECG] Stat Date of Encounter: 11/03/18 Time of Encounter: 09:37 - Discharge Diagnosis (1) URI (upper respiratory infection) Priority: Primary Status: Acute Qualifiers: URI type: unspecified URI Qualified Code(s): J06.9 - Acute upper respiratory infection, unspecified (2) CAD (coronary artery disease) Priority: Secondary Status: Chronic Qualifiers: Coronary Disease-Associated Artery/Lesion type: unspecified vessel or lesion type [place] vs. transplanted heart: [place] heart Associated angina: angina presence unspecified Qualified Code(s): I25.10 - Atherosclerotic heart disease of [place] coronary artery without angina pectoris (3) Acute respiratory failure with hypoxia Priority: Secondary Status: Resolved (4) Elevated troponin Priority: Secondary Status: Acute (5) Chronic kidney disease, stage 3 Priority: Secondary Status: Chronic (6) Weakness Priority: Secondary Status: Chronic (7) Hypertension Priority: Secondary Status: Chronic Qualifiers: Hypertension type: essential hypertension Qualified Code(s): I10 - Essent ial (primary) hypertension (8) GERD (gastroesophageal reflux disease) Priority: Secondary Status: Chronic Qualifiers: Esophagitis presence: esophagitis presence not specified Qualified Code(s): K21.9 - Gastro-esophageal reflux disease without esophagitis (9) Insulin dependent diabetes mellitus Priority: Secondary Status: Chronic (10) Falls Priority: Secondary Status: Chronic Qualifiers: Encounter type: initial encounter Qualified Code(s): W19.XXXA - Unspecified fall, initial encounter Hospital course: Ms. Jacinto is a 78 year old female with PMH of CAD s/p CABG, IDDM, CKD stage III, remote lung and breast cancer, HTN, CVA s/p craniotomy presented as a transfer from [place] for evaluation of elevated troponin. Patient initially presented to [place] due to weakness and chills. She reported having fell multiple times in the past few days. She reportedly had several day history of dry cough, chills, night sweats. At [place] ED she waas found to have O2 saturation of 89% and after 3 L O2 improved to 97%. Troponin was 0.174 and patient was without chest pain. EKG showed sinus rhythm with first degree av block, and non-specific ST changes with T wave inversions in II, III, avf. She had an elevated creatinine at 2.20, and baseline is about 1.4. Lactic acid was within normal limits, afebrile, WBC borderline elevated at 11k. She was started on a heparin drip at transfer hospital, given one liter normal saline, Xopenex, and IV protonix. Patient currently denies any CP, SOB. She still has persistent dry cough and complains of sinus congestion and rhinorrhea. Imaging chest CT showed Abnormal right paramediastinal soft tissue attenuation which is worrisome for neoplasm. Findings also completely related to treated neoplasm with radiation changes. Correlation is recommended. Comparison with prior studies would be helpful. Dependent lower lobe consolidation, greatest within the medial right lower lobe, atelectasis or pneumonia. XR chest showed patchy bilateral airspace disease. Multifocal pneumonia is primarily considered, but pulmonary edema is also a differential consideration. Cardiology saw the patient while in the hospital. They said that in the setting of mild, adynamic troponins (0.13 --> 0.09) with CHRISTIAN, respiratory failure, and PNA. TTE with LVEF preserved, no wall motion abnormalities. Troponins demand ischemia, NO cardiac rehab consult warranted. Consider outpatient stress test. Cardiology signed off and recommended outpatient follow up. Appointment to be made. The patient was given azithromycin and rocephin x 5 days while in the hospital. She was started on a prednisone burst 40mg PO daily and will be discharged with 3 more days of steroids. The pt is medically stable for discharge and will be discharged pending placement. Discharge discussed with: patient Time spent discussing smoking cessation with patient: 3 to 10 minutes - Time Spent with Patient Total time spent providing and/or coordinating discharge services: Time spent: Less than 30 minutes - Discharge Medications Prescriptions: New PredniSONE [Deltasone] 40 mg PO BID 2 Days #4 tablet Continued Acetaminophen [Tylenol] 1,000 mg PO Q6H PRN PRN Reason: Pain Allopurinol [Zyloprim] 300 mg PO DAILY Atorvastatin [Lipitor] 40 mg PO HS Carvedilol [Coreg] 25 mg PO BID Cetirizine HCl [24Hour Allergy] 5 mg PO DAILY Ergocalciferol (VITAMIN D2) [Vitamin D2] 50,000 unit PO TU Gabapentin [Neurontin] 300 mg PO TID PRN PRN Reason: Pain hydrALAZINE [HydrALAZINE] 25 mg PO BID Insulin Glargine,Hum.rec.anlog [Lantus Solostar] 45 unit SQ DAILY Pantoprazole Sodium [Protonix] 40 mg PO DAILY Nitroglycerin 0.3 mg SL Q5MIN PRN PRN Reason: Chest Pain Magnesium Oxide [Magnesium] 400 mg PO BID Fluticasone Propionate Nasal [Flonase] 2 spray NS DAILY PRN PRN Reason: Allergy Symptoms Glimepiride [Amaryl] 4 mg PO DAILY Citalopram Hydrobromide [Celexa] 30 mg PO DAILY Aspirin Enteric Coated [Aspirin EC] 81 mg PO DAILY Montelukast [Singulair] 10 mg PO DAILY LevETIRAcetam [Keppra] 750 mg PO BID Albuterol Sulfate [Albuterol Inhaler] 2 puff IH Q4HR PRN #1 hfa.aer.ad PRN Reason: Wheezing Home Medications: Albuterol Sulfate [Albuterol Inhaler] 2 puff IH Q4HR PRN #1 hfa.aer.ad 12/06/15 [Rx] Aspirin Enteric Coated [Aspirin EC] 81 mg PO DAILY 12/06/15 [History] Citalopram Hydrobromide [Celexa] 30 mg PO DAILY 12/06/15 [History] Fluticasone Propionate Nasal [Flonase] 2 spray NS DAILY PRN 12/06/15 [History] Glimepiride [Amaryl] 4 mg PO DAILY 12/06/15 [History] LevETIRAcetam [Keppra] 750 mg PO BID 12/06/15 [History] Magnesium Oxide [Magnesium] 400 mg PO BID 12/06/15 [History] Montelukast [Singulair] 10 mg PO DAILY 12/06/15 [History] Acetaminophen [Tylenol] 1,000 mg PO Q6H PRN 10/29/18 [History] Allopurinol [Zyloprim] 300 mg PO DAILY 10/29/18 [History] Atorvastatin [Lipitor] 40 mg PO HS 10/29/18 [History] Carvedilol [Coreg] 25 mg PO BID 10/29/18 [History] Cetirizine HCl [24Hour Allergy] 5 mg PO DAILY 10/29/18 [History] Ergocalciferol (VITAMIN D2) [Vitamin D2] 50,000 unit PO TU 10/29/18 [History] Gabapentin [Neurontin] 300 mg PO TID PRN 10/29/18 [History] Insulin Glargine,Hum.rec.anlog [Lantus Solostar] 45 unit SQ DAILY 10/29/18 [History] Nitroglycerin 0.3 mg SL Q5MIN PRN 10/29/18 [History] Pantoprazole Sodium [Protonix] 40 mg PO DAILY 10/29/18 [History] hydrALAZINE [HydrALAZINE] 25 mg PO BID 10/29/18 [History] PredniSONE [Deltasone] 40 mg PO BID 2 Days #4 tablet 11/04/18 [Rx] Allergies/Adverse Reactions: Allergy/AdvReac Type Severity Reaction Status Date / Time acetaminophen [From [place]] Allergy Rash Verified 12/06/15 12:01 ciprofloxacin [From Cipro] Allergy See Verified 12/06/15 12:01 Comments codeine Allergy See Verified 12/06/15 12:01 Comments hydrocodone [From [place]] Allergy Rash Verified 12/06/15 12:01 Iodinated Contrast- Oral and Allergy See Verified 12/06/15 12:01 IV Dye Comments [Iodinated Contrast Media - IV Dye] levofloxacin [From Levaquin] Allergy See Verified 12/06/15 12:01 Comments losartan [From Cozaar] Allergy See Verified 12/06/15 12:01 Comments Date of admission: 10/29/18 20:05 Primary care physician: PCP NONE Consults: 10/29/18 18:17 Consult to Occupational Therapy [CONS] Routine Comment: Evaluate, develop and implement POC Reason for Consult: Evaluate, develop and implement POC Does patient have active BEDREST order?: No Is patient medically & hemodynamically stable?: Yes Consult to Physical Therapy [CONS] Routine Comment: Evaluate, develop and implement POC Reason for Consult: Disposition planning. Therapy - weakness in bed. Does patient have active BEDREST order?: No Is patient medically & hemodynamically stable?: Yes 10/29/18 18:26 Consult to Cardiology [CONS] Routine Comment: Consulting Provider: Cardiology Nia Reason for Consult: elevated troponin Call Completed: No Discharging clinician: Ruddy Jacinto Anticipated date of discharge: 11/03/18 - Constitutional Vitals: Temp Pulse Resp BP Pulse Ox 98.1 F 85 15 103/77 99 11/03/18 07:01 11/03/18 07:01 11/03/18 07:39 11/03/18 07:01 11/03/18 07:39 General appearance: Present: A&O X 3, no acute distress, answers questions appropriately Exam: Gen: NAD, confused, laying in bed ENT: MM dry, neck warm, supple, no LA Head: NC/AT, scleral anictetic CVS: RRR, no mrg, CTA Lungs: decreased breath sounds, wheezing faint Abd: soft, NT/ND, obese Ext: no edema, no cyanosis. Skin: warm, dry, intact . - Patient Status Disposition: Transfer SNF Condition: Fair Functional capacity at discharge: uses cane/walker Overall status at discharge: patient is progressing back to baseline - Discharge Instructions Follow Up With: Orlando Morgan DO [Resident] - René Fischer MD [Partnered Physician] - - Diet and Activity Activity: as per physical therapy Diet: other (cardiac diet) <Hola Gonzalez - Last Filed: 11/04/18 23:11> Orders not resulted at time of discharge: Pending orders 10/29/18 18:19 Culture,Sputum with Gram Stain [RM] Routine Legionella Antigen [RM] Routine Streptococcal pneumoniae urin antigen [S. Pneumoniae Antigen] [RM] Routine 10/29/18 19:18 Culture,Blood [BC] Stat 10/31/18 06:50 EKG [ECG 12 lead ECG] [ECG] Stat Date of Encounter: 11/04/18 - Discharge Diagnosis (1) Acute respiratory failure with hypoxia Status: Resolved (2) Elevated troponin Status: Acute (3) Acute on chronic kidney failure Status: Acute Qualifiers: Acute renal failure type: unspecified Chronic kidney disease stage: stage 3 (moderate) Qualified Code(s): N17.9 - Acute kidney failure, unspecified; N18.3 - Chronic kidney disease, stage 3 (moderate) (4) Chronic kidney disease, stage 3 Status: Chronic (5) Weakness Status: Chronic (6) Hypertension Status: Chronic Qualifiers: Hypertension type: essential hypertension Qualified Code(s): I10 - Essential (primary) hypertension (7) GERD (gastroesophageal reflux disease) Status: Chronic Qualifiers: Esophagitis presence: esophagitis presence not specified Qualified Code(s): K21.9 - Gastro-esophageal reflux disease without esophagitis (8) Coronary artery disease Status: Acute Qualifiers: Coronary Disease-Associated Artery/Lesion type: [place] artery [place] vs. transplanted heart: [place] heart Associated angina: without angina Qualified Code(s): I25.10 - Atherosclerotic heart disease of [place] coronary artery without angina pectoris (9) Insulin dependent diabetes mellitus Status: Chronic (10) Falls Status: Chronic Qualifiers: Encounter type: initial encounter Qualified Code(s): W19.XXXA - Unspecified fall, initial encounter (11) Pneumonia Status: Suspected Qualifiers: Pneumonia type: due to unspecified organism Laterality: unspecified laterality Lung location: unspecified part of lung Qualified Code(s): J18.9 - Pneumonia, unspecified organism Hospital course: Ms. Jacinto is a 78 year old female - Time Spent with Patient Total time spent providing and/or coordinating discharge services: Date of admission: 10/29/18 20:05 Primary care physician: PCP NONE Consults: 10/29/18 18:17 Consult to Occupational Therapy [CONS] Routine Comment: Evaluate, develop and implement POC Reason for Consult: Evaluate, develop and implement POC Does patient have active BEDREST order?: No Is patient medically & hemodynamically stable?: Yes Consult to Physical Therapy [CONS] Routine Comment: Evaluate, develop and implement POC Reason for Consult: Disposition planning. Therapy - weakness in bed. Does patient have active BEDREST order?: No Is patient medically & hemodynamically stable?: Yes 10/29/18 18:26 Consult to Cardiology [CONS] Routine Comment: Consulting Provider: Cardiology Nia Reason for Consult: elevated troponin Call Completed: No - Constitutional Vitals: Temp Pulse Resp BP Pulse Ox 98.1 F 85 15 103/77 99 11/03/18 07:01 11/03/18 07:01 11/03/18 11:53 11/03/18 07:01 11/03/18 11:53 - Attending Attestation I examined this patient and my medical decision-making was reviewed with the Resident Physician. I agree with the documented findings, disposition and treatment plan as described except to the extent set forth below.
[2018-11-03] MEDS: Azithromycin 500 MG in D5% in Water 250 ML IVPB SCH (09:54)
[2018-11-03] MEDS: Cholecalciferol (D-3) 1,000 UNIT TABLET PO SCH ×2 (09:59→23:31)
[2018-11-03] MEDS: levETIRAcetam 250 MG TABLET PO SCH ×2 (09:59→21:46)
[2018-11-03] MEDS: cefTRIAXone 1,000 MG in Water for inj. (sterile) 20 ML 10 ML IVP SCH (09:59)
[2018-11-03] MEDS: predniSONE 20 MG TABLET PO SCH (10:00)
[2018-11-03] MEDS: Aspirin Enteric Coated 81 MG Tablet PO SCH (10:00)
[2018-11-03] MEDS: Magnesium Oxide 400 MG TABLET PO SCH ×2 (10:00→21:47)
[2018-11-03] MEDS: hydrALAZINE 25 MG TABLET PO SCH ×2 (10:01→21:47)
[2018-11-03] MEDS: Loratadine 10 MG TABLET PO SCH (10:01)
[2018-11-03] MEDS: Insulin DETEMIR 100 UNIT/ML X5UNITS SQ SCH ×2 (12:03→21:50)
[2018-11-03] MEDS: cephALEXin 500 MG CAPSULE PO SCH ×2 (15:51→21:47)
[2018-11-03] MEDS: 0.9 % Sodium Chloride 1,000 ML IVC SCH (23:30)
[2018-11-04] MEDS: Insulin LISPRO 300 UNITS/3 ML VIAL SQ SCH ×6 (00:17→22:08)
[2018-11-04] MEDS: Ipratropium/Albuterol Neb 3 ML IH SCH ×7 (00:32→23:49)
[2018-11-04] MEDS: *HR* Heparin 5,000 UNIT/ML VIAL SQ SCH ×2 (05:04→17:10)
--- NOTE | 2018-11-04 07:15 | Discharge Summary ---
<Ruddy Jacinto S - Last Filed: 11/04/18 10:39> - NOTES TO OUTPATIENT PROVIDER Notes to Outpatient Provider: F/U with PCP in 1 week after d/c. Finish prednisone burst x 2 more days. Pt will be d/c with no abx. F/U with cardiology 1-[address] showed Abnormal right paramediastinal soft tissue attenuation which is worrisome for neoplasm. Findings also completely related to treated neoplasm with radiation changes. Correlation is recommended. Comparison with prior studies would be helpful. Recommend f/u of the soft tissue mass as an outpatient. Orders not resulted at time of discharge: Pending orders 10/29/18 18:19 Culture,Sputum with Gram Stain [RM] Routine Legionella Antigen [RM] Routine Streptococcal pneumoniae urin antigen [S. Pneumoniae Antigen] [RM] Routine 10/31/18 06:50 EKG [ECG 12 lead ECG] [ECG] Stat Date of Encounter: 11/04/18 Time of Encounter: 08:44 - Discharge Diagnosis (1) Acute respiratory failure with hypoxia Priority: Primary Status: Resolved (2) Elevated troponin Priority: Secondary Status: Acute (3) Pneumonia Priority: Secondary Status: Suspected Qualifiers: Pneumonia type: due to unspecified organism Laterality: unspecified laterality Lung location: unspecified part of lung Qualified Code(s): J18.9 - Pneumonia, unspecified organism (4) URI (upper respiratory infection) Priority: Secondary Status: Acute Qualifiers: URI type: unspecified URI Qualified Code(s): J06.9 - Acute upper respiratory infection, unspecified (5) CAD (coronary artery disease) Priority: Secondary Status: Chronic Qualifiers: Coronary Disease-Associated Artery/Lesion type: unspecified vessel or lesion type [place] vs. transplanted heart: [place] heart Associated angina: angina presence unspecified Qualified Code(s): I25.10 - Atherosclerotic heart disease of [place] coronary artery without angina pectoris (6) Chronic kidney disease, stage 3 Priority: Secondary Status: Chronic (7) Falls Priority: Secondary Status: Chronic Qualifiers: Encounter type: initial encounter Qualified Code(s): W19.XXXA - Unspecified fall, initial encounter (8) Hypertension Priority: Secondary Status: Chronic Qualifiers: Hypertension type: essential hypertension Qualified Code(s): I10 - Essential (primary) hypertension (9) Insulin dependent diabetes mellitus Priority: Secondary Status: Chronic (10) DVT prophylaxis Priority: Secondary Status: Acute Hospital course: Ms. Jacinto is a 78 year old female with PMH of CAD s/p CABG, IDDM, CKD stage III, remote lung and breast cancer, HTN, CVA s/p craniotomy presented as a transfer from [place] for evaluation of elevated troponin. Patient initially presented to [place] due to weakness and chills. She reported having fell multiple times in the past few days. She reportedly had several day history of dry cough, chills, night sweats. At [place] ED she waas found to have O2 saturation of 89% and after 3 L O2 improved to 97%. Troponin was 0.174 and patient was without chest pain. EKG showed sinus rhythm with first degree av block, and non-specific ST changes with T wave inversions in II, III, avf. She had an elevated creatinine at 2.20, and baseline is about 1.4. Lactic acid was within normal limits, afebrile, WBC borderline elevated at 11k. She was started on a heparin drip at transfer hospital, given one liter normal saline, Xopenex, and IV protonix. Patient currently denies any CP, SOB. She still has persistent dry cough and complains of sinus congestion and rhinorrhea. Imaging chest CT showed Abnormal right paramediastinal soft tissue attenuation which is worrisome for neoplasm. Findings also completely related to treated neoplasm with radiation changes. Correlation is recommended. Comparison with prior studies would be helpful. Dependent lower lobe consolidation, greatest within the medial right lower lobe, atelectasis or pneumonia. XR chest showed patchy bilateral airspace disease. Multifocal pneumonia is primarily considered, but pulmonary edema is also a differential consideration. Cardiology saw the patient while in the hospital. They said that in the setting of mild, adynamic troponins (0.13 --> 0.09) with CHRISTIAN, respiratory failure, and PNA. TTE with LVEF preserved, no wall motion abnormalities. Troponins demand ischemia, NO cardiac rehab consult warranted. Consider outpatient stress test. Cardiology signed off and recommended outpatient follow up. Appointment to be made. The patient was given azithromycin and rocephin x 5 days while in the hospital. She was started on a prednisone burst 40mg PO daily and will be discharged with 2 more days of steroids. The pt is medically stable for discharge and will be discharged pending placement. Discharge discussed with: patient, nurse Time spent discussing smoking cessation with patient: 3 to 10 minutes - Time Spent with Patient Total time spent providing and/or coordinating discharge services: Time spent: Greater than 30 minutes - Discharge Medications Prescriptions: New PredniSONE [Deltasone] 40 mg PO BID 2 Days #4 tablet Continued Acetaminophen [Tylenol] 1,000 mg PO Q6H PRN PRN Reason: Pain Allopurinol [Zyloprim] 300 mg PO DAILY Atorvastatin [Lipitor] 40 mg PO HS Carvedilol [Coreg] 25 mg PO BID Cetirizine HCl [24Hour Allergy] 5 mg PO DAILY Ergocalciferol (VITAMIN D2) [Vitamin D2] 50,000 unit PO TU Gabapentin [Neurontin] 300 mg PO TID PRN PRN Reason: Pain hydrALAZINE [HydrALAZINE] 25 mg PO BID Insulin Glargine,Hum.rec.anlog [Lantus Solostar] 45 unit SQ DAILY Pantoprazole Sodium [Protonix] 40 mg PO DAILY Nitroglycerin 0.3 mg SL Q5MIN PRN PRN Reason: Chest Pain Magnesium Oxide [Magnesium] 400 mg PO BID Fluticasone Propionate Nasal [Flonase] 2 spray NS DAILY PRN PRN Reason: Allergy Symptoms Glimepiride [Amaryl] 4 mg PO DAILY Citalopram Hydrobromide [Celexa] 30 mg PO DAILY Aspirin Enteric Coated [Aspirin EC] 81 mg PO DAILY Montelukast [Singulair] 10 mg PO DAILY LevETIRAcetam [Keppra] 750 mg PO BID Albuterol Sulfate [Albuterol Inhaler] 2 puff IH Q4HR PRN #1 hfa.aer.ad PRN Reason: Wheezing Home Medications: Albuterol Sulfate [Albuterol Inhaler] 2 puff IH Q4HR PRN #1 hfa.aer.ad 12/06/15 [Rx] Aspirin Enteric Coated [Aspirin EC] 81 mg PO DAILY 12/06/15 [History] Citalopram Hydrobromide [Celexa] 30 mg PO DAILY 12/06/15 [History] Fluticasone Propionate Nasal [Flonase] 2 spray NS DAILY PRN 12/06/15 [History] Glimepiride [Amaryl] 4 mg PO DAILY 12/06/15 [History] LevETIRAcetam [Keppra] 750 mg PO BID 12/06/15 [History] Magnesium Oxide [Magnesium] 400 mg PO BID 12/06/15 [History] Montelukast [Singulair] 10 mg PO DAILY 12/06/15 [History] Acetaminophen [Tylenol] 1,000 mg PO Q6H PRN 10/29/18 [History] Allopurinol [Zyloprim] 300 mg PO DAILY 10/29/18 [History] Atorvastatin [Lipitor] 40 mg PO HS 10/29/18 [History] Carvedilol [Coreg] 25 mg PO BID 10/29/18 [History] Cetirizine HCl [24Hour Allergy] 5 mg PO DAILY 10/29/18 [History] Ergocalciferol (VITAMIN D2) [Vitamin D2] 50,000 unit PO TU 10/29/18 [History] Gabapentin [Neurontin] 300 mg PO TID PRN 10/29/18 [History] Insulin Glargine,Hum.rec.anlog [Lantus Solostar] 45 unit SQ DAILY 10/29/18 [History] Nitroglycerin 0.3 mg SL Q5MIN PRN 10/29/18 [History] Pantoprazole Sodium [Protonix] 40 mg PO DAILY 10/29/18 [History] hydrALAZINE [HydrALAZINE] 25 mg PO BID 10/29/18 [History] PredniSONE [Deltasone] 40 mg PO BID 2 Days #4 tablet 11/04/18 [Rx] Allergies/Adverse Reactions: Allergy/AdvReac Type Severity Reaction Status Date / Time acetaminophen [From [place]] Allergy Rash Verified 12/06/15 12:01 ciprofloxacin [From Cipro] Allergy See Verified 12/06/15 12:01 Comments codeine Allergy See Verified 12/06/15 12:01 Comments hydrocodone [From [place]] Allergy Rash Verified 12/06/15 12:01 Iodinated Contrast- Oral and Allergy See Verified 12/06/15 12:01 IV Dye Comments [Iodinated Contrast Media - IV Dye] levofloxacin [From Levaquin] Allergy See Verified 12/06/15 12:01 Comments losartan [From Cozaar] Allergy See Verified 12/06/15 12:01 Comments Date of admission: 10/29/18 20:05 Primary care physician: PCP NONE Consults: 10/29/18 18:17 Consult to Occupational Therapy [CONS] Routine Comment: Evaluate, develop and implement POC Reason for Consult: Evaluate, develop and implement POC Does patient have active BEDREST order?: No Is patient medically & hemodynamically stable?: Yes Consult to Physical Therapy [CONS] Routine Comment: Evaluate, develop and implement POC Reason for Consult: Disposition planning. Therapy - weakness in bed. Does patient have active BEDREST order?: No Is patient medically & hemodynamically stable?: Yes 10/29/18 18:26 Consult to Cardiology [CONS] Routine Comment: Consulting Provider: [facility] Reason for Consult: elevated troponin Call Completed: No Discharging clinician: Ruddy Jacinto Anticipated date of discharge: 11/04/18 - Constitutional Vitals: Temp Pulse Resp BP Pulse Ox 97.9 F 91 18 151/97 96 11/04/18 04:33 11/04/18 04:33 11/04/18 04:33 11/04/18 04:33 11/04/18 04:33 General appearance: Present: A&O X 3, no acute distress, answers questions appropriately Exam: Gen: NAD, confused, laying in bed ENT: MM dry, neck warm, supple, no LA Head: NC/AT, scleral anictetic CVS: RRR, no mrg, CTA Lungs: decreased breath sounds, wheezing faint Abd: soft, NT/ND, obese Ext: no edema, no cyanosis. Skin: warm, dry, intact . - Patient Status Disposition: Transfer SNF Condition: Fair Functional capacity at discharge: uses cane/walker Overall status at discharge: patient is progressing back to baseline - Discharge Instructions Follow Up With: René Fischer MD [Partnered Physician] - Orlando Morgan DO [Resident] - - Diet and Activity Activity: increase activity as tolerated Diet: diabetic diet <Hola Gonzalez - Last Filed: 11/04/18 12:53> Orders not resulted at time of discharge: Pending orders 10/29/18 18:19 Culture,Sputum with Gram Stain [RM] Routine Legionella Antigen [RM] Routine Streptococcal pneumoniae urin antigen [S. Pneumoniae Antigen] [RM] Routine 10/31/18 06:50 EKG [ECG 12 lead ECG] [ECG] Stat Date of Encounter: 11/04/18 - Discharge Diagnosis (1) Acute respiratory failure with hypoxia Status: Resolved (2) Elevated troponin Status: Acute (3) Acute on chronic kidney failure Status: Acute Qualifiers: Acute renal failure type: unspecified Chronic kidney disease stage: stage 3 (moderate) Qualified Code(s): N17.9 - Acute kidney failure, unspecified; N18.3 - Chronic kidney disease, stage 3 (moderate) (4) Chronic kidney disease, stage 3 Status: Chronic (5) Weakness Status: Chronic (6) Hypertension Status: Chronic Qualifiers: Hypertension type: essential hypertension Qualified Code(s): I10 - Essential (primary) hypertension (7) GERD (gastroesophageal reflux disease) Status: Chronic Qualifiers: Esophagitis presence: esophagitis presence not specified Qualified Code(s): K21.9 - Gastro-esophageal reflux disease without esophagitis (8) Coronary artery disease Status: Acute Qualifiers: Coronary Disease-Associated Artery/Lesion type: [place] artery [place] vs. t ransplanted heart: [place] heart Associated angina: without angina Qualified Code(s): I25.10 - Atherosclerotic heart disease of [place] coronary artery without angina pectoris (9) Insulin dependent diabetes mellitus Status: Chronic (10) Falls Status: Chronic Qualifiers: Encounter type: initial encounter Qualified Code(s): W19.XXXA - Unspecified fall, initial encounter (11) Pneumonia Status: Suspected Qualifiers: Pneumonia type: due to unspecified organism Laterality: unspecified laterality Lung location: unspecified part of lung Qualified Code(s): J18.9 - Pneumonia, unspecified organism Hospital course: Ms. Jacinto is a 78 year old female - Time Spent with Patient Total time spent providing and/or coordinating discharge services: Date of admission: 10/29/18 20:05 Primary care physician: PCP NONE Consults: 10/29/18 18:17 Consult to Occupational Therapy [CONS] Routine Comment: Evaluate, develop and implement POC Reason for Consult: Evaluate, develop and implement POC Does patient have active BEDREST order?: No Is patient medically & hemodynamically stable?: Yes Consult to Physical Therapy [CONS] Routine Comment: Evaluate, develop and implement POC Reason for Consult: Disposition planning. Therapy - weakness in bed. Does patient have active BEDREST order?: No Is patient medically & hemodynamically stable?: Yes 10/29/18 18:26 Consult to Cardiology [CONS] Routine Comment: Consulting Provider: Card[facility] [place] Reason for Consult: elevated troponin Call Completed: No - Constitutional Vitals: Temp Pulse Resp BP Pulse Ox 97.9 F 83 17 156/95 93 11/04/18 07:31 11/04/18 12:00 11/04/18 12:00 11/04/18 07:31 11/04/18 07:31 - Attending Attestation I examined this patient and my medical decision-making was reviewed with the Resident Physician. I agree with the documented findings, disposition and treatment plan as described except to the extent set forth below.
--- NOTE | 2018-11-04 07:16 | Physician Discharge Referral ---
ExtendedCare Referral Info Transfer To: [facility] and Care Provider in Charge after Transfer: PCP Institutional Level of Care: Skilled - Diagnosis (1) Acute respiratory failure with hypoxia Priority: Primary Status: Resolved (2) Elevated troponin Priority: Secondary Status: Acute (3) Pneumonia Priority: Secondary Status: Suspected (4) URI (upper respiratory infection) Priority: Secondary Status: Acute (5) CAD (coronary artery disease) Priority: Secondary Status: Chronic (6) Chronic kidney disease, stage 3 Priority: Secondary Status: Chronic (7) Falls Priority: Secondary Status: Chronic (8) Hypertension Priority: Secondary Status: Chronic (9) Insulin dependent diabetes mellitus Priority: Secondary Status: Chronic Prognosis: Fair Aware of Diagnosis: Patient Aware of Prognosis: Patient - Transfer Medications Prescriptions: PredniSONE [Deltasone] 40 mg PO BID 2 Days #4 tablet Home Medications: Albuterol Sulfate [Albuterol Inhaler] 2 puff IH Q4HR PRN #1 hfa.aer.ad 12/06/15 [Rx] Aspirin Enteric Coated [Aspirin EC] 81 mg PO DAILY 12/06/15 [History] Citalopram Hydrobromide [Celexa] 30 mg PO DAILY 12/06/15 [History] Fluticasone Propionate Nasal [Flonase] 2 spray NS DAILY PRN 12/06/15 [History] Glimepiride [Amaryl] 4 mg PO DAILY 12/06/15 [History] LevETIRAcetam [Keppra] 750 mg PO BID 12/06/15 [History] Magnesium Oxide [Magnesium] 400 mg PO BID 12/06/15 [History] Montelukast [Singulair] 10 mg PO DAILY 12/06/15 [History] Acetaminophen [Tylenol] 1,000 mg PO Q6H PRN 10/29/18 [History] Allopurinol [Zyloprim] 300 mg PO DAILY 10/29/18 [History] Atorvastatin [Lipitor] 40 mg PO HS 10/29/18 [History] Carvedilol [Coreg] 25 mg PO BID 10/29/18 [History] Cetirizine HCl [24Hour Allergy] 5 mg PO DAILY 10/29/18 [History] Ergocalciferol (VITAMIN D2) [Vitamin D2] 50,000 unit PO TU 10/29/18 [History] Gabapentin [Neurontin] 300 mg PO TID PRN 10/29/18 [History] Insulin Glargine,Hum.rec.anlog [Lantus Solostar] 45 unit SQ DAILY 10/29/18 [History] Nitroglycerin 0.3 mg SL Q5MIN PRN 10/29/18 [History] Pantoprazole Sodium [Protonix] 40 mg PO DAILY 10/29/18 [History] hydrALAZINE [HydrALAZINE] 25 mg PO BID 10/29/18 [History] PredniSONE [Deltasone] 40 mg PO BID 2 Days #4 tablet 11/04/18 [Rx] Allergies/Adverse Reactions: Allergy/AdvReac Type Severity Reaction Status Date / Time acetaminophen [From [place]] Allergy Rash Verified 12/06/15 12:01 ciprofloxacin [From Cipro] Allergy See Verified 12/06/15 12:01 Comments codeine Allergy See Verified 12/06/15 12:01 Comments hydrocodone [From [place]] Allergy Rash Verified 12/06/15 12:01 Iodinated Contrast- Oral and Allergy See Verified 12/06/15 12:01 IV Dye Comments [Iodinated Contrast Media - IV Dye] levofloxacin [From Levaquin] Allergy See Verified 12/06/15 12:01 Comments losartan [From Cozaar] Allergy See Verified 12/06/15 12:01 Comments - Respiratory Orders Smoking Cessation: Smoking cessation has been advised. For more information, call the [place] Tobacco Quit Line at 2-190-NNIQNOW. - Advance Directives Code Status: Full Code - Mobility Orders Chair - Rehabiliation Orders Rehab Potential: Fair Rehab Orders: ROM Exercises, Evaluation for Physical Therapy, Evaluation for Occupational Therapy - Diet Orders Cardiac CERTIFICATION: I certify that the transfer of the above named patient to an Extended Care Facility is necessary for the continuing treatment of the diagnosis listed. The above information is true and accurate reflection of patient's current condition. Confidential - Redisclosure prohibited without a patient's written consent.
[2018-11-04] MEDS: Loratadine 10 MG TABLET PO SCH (09:02)
[2018-11-04] MEDS: Aspirin Enteric Coated 81 MG Tablet PO SCH (09:02)
[2018-11-04] MEDS: Azithromycin 250 MG TABLET PO SCH (09:02)
[2018-11-04] MEDS: hydrALAZINE 25 MG TABLET PO SCH ×2 (09:02→22:01)
[2018-11-04] MEDS: Magnesium Oxide 400 MG TABLET PO SCH ×2 (09:02→22:02)
[2018-11-04] MEDS: levETIRAcetam 250 MG TABLET PO SCH ×2 (09:02→22:01)
[2018-11-04] MEDS: cephALEXin 500 MG CAPSULE PO SCH ×2 (09:03→22:01)
[2018-11-04] MEDS: predniSONE 20 MG TABLET PO SCH (09:03)
[2018-11-04] MEDS: Cholecalciferol (D-3) 1,000 UNIT TABLET PO SCH (09:03)
[2018-11-04] MEDS: Insulin DETEMIR 100 UNIT/ML X5UNITS SQ SCH ×2 (09:15→22:05)
[2018-11-05] MEDS: Insulin LISPRO 300 UNITS/3 ML VIAL SQ SCH ×4 (01:54→12:54)
[2018-11-05] MEDS: Ipratropium/Albuterol Neb 3 ML IH SCH ×3 (04:02→11:31)
[2018-11-05] MEDS: *HR* Heparin 5,000 UNIT/ML VIAL SQ SCH (05:19)
--- NOTE | 2018-11-05 08:03 | Physician Discharge Referral ---
<Ruddy Jacinto S - Last Filed: 11/05/18 11:12> ExtendedCare Referral Info Transfer To: [facility] and Care Provider in Charge after Transfer: PCP Institutional Level of Care: Skilled - Diagnosis (1) Acute respiratory failure with hypoxia Priority: Primary Status: Resolved (2) Elevated troponin Priority: Secondary Status: Acute (3) Pneumonia Priority: Secondary Status: Suspected (4) URI (upper respiratory infection) Priority: Secondary Status: Acute (5) CAD (coronary artery disease) Priority: Secondary Status: Chronic (6) Chronic kidney disease, stage 3 Priority: Secondary Status: Chronic (7) Falls Priority: Secondary Status: Chronic (8) Hypertension Priority: Secondary Status: Chronic (9) Insulin dependent diabetes mellitus Priority: Secondary Status: Chronic (10) DVT prophylaxis Priority: Secondary Status: Acute Prognosis: Fair Aware of Diagnosis: Patient Aware of Prognosis: Patient - Transfer Medications Home Medications: Albuterol Sulfate [Albuterol Inhaler] 2 puff IH Q4HR PRN #1 hfa.aer.ad 12/06/15 [Rx] Aspirin Enteric Coated [Aspirin EC] 81 mg PO DAILY 12/06/15 [History] Citalopram Hydrobromide [Celexa] 30 mg PO DAILY 12/06/15 [History] Fluticasone Propionate Nasal [Flonase] 2 spray NS DAILY PRN 12/06/15 [History] Glimepiride [Amaryl] 4 mg PO DAILY 12/06/15 [History] LevETIRAcetam [Keppra] 750 mg PO BID 12/06/15 [History] Magnesium Oxide [Magnesium] 400 mg PO BID 12/06/15 [History] Montelukast [Singulair] 10 mg PO DAILY 12/06/15 [History] Acetaminophen [Tylenol] 1,000 mg PO Q6H PRN 10/29/18 [History] Allopurinol [Zyloprim] 300 mg PO DAILY 10/29/18 [History] Atorvastatin [Lipitor] 40 mg PO HS 10/29/18 [History] Carvedilol [Coreg] 25 mg PO BID 10/29/18 [History] Cetirizine HCl [24Hour Allergy] 5 mg PO DAILY 10/29/18 [History] Ergocalciferol (VITAMIN D2) [Vitamin D2] 50,000 unit PO TU 10/29/18 [History] Gabapentin [Neurontin] 300 mg PO TID PRN 10/29/18 [History] Insulin Glargine,Hum.rec.anlog [Lantus Solostar] 45 unit SQ DAILY 10/29/18 [History] Nitroglycerin 0.3 mg SL Q5MIN PRN 10/29/18 [History] Pantoprazole Sodium [Protonix] 40 mg PO DAILY 10/29/18 [History] hydrALAZINE [HydrALAZINE] 25 mg PO BID 10/29/18 [History] Allergies/Adverse Reactions: Allergy/AdvReac Type Severity Reaction Status Date / Time acetaminophen [From [place]] Allergy Rash Verified 12/06/15 12:01 ciprofloxacin [From Cipro] Allergy See Verified 12/06/15 12:01 Comments codeine Allergy See Verified 12/06/15 12:01 Comments hydrocodone [From [place]] Allergy Rash Verified 12/06/15 12:01 Iodinated Contrast- Oral and Allergy See Verified 12/06/15 12:01 IV Dye Comments [Iodinated Contrast Media - IV Dye] levofloxacin [From Levaquin] Allergy See Verified 12/06/15 12:01 Comments losartan [From Cozaar] Allergy See Verified 12/06/15 12:01 Comments - Respiratory Orders Smoking Cessation: Smoking cessation has been advised. For more information, call the [place] Tobacco Quit Line at 9-133-FBZONOW. - Advance Directives Code Status: Full Code - Rehabiliation Orders Rehab Potential: Fair Rehab Orders: ROM Exercises, Evaluation for Physical Therapy, Evaluation for Occupational Therapy - Diet Orders Cardiac CERTIFICATION: I certify that the transfer of the above named patient to an Extended Care Facility is necessary for the continuing treatment of the diagnosis listed. The above information is true and accurate reflection of patient's current condition. Confidential - Redisclosure prohibited without a patient's written consent. <Anais Lunsford - Last Filed: 11/05/18 12:05> - Diagnosis (1) Acute respiratory failure with hypoxia Status: Resolved (2) Elevated troponin Status: Acute (3) Acute on chronic kidney failure Status: Acute (4) Chronic kidney disease, stage 3 Status: Chronic (5) Weakness Status: Chronic (6) Hypertension Status: Chronic (7) GERD (gastroesophageal reflux disease) Status: Chronic (8) Coronary artery disease Status: Acute (9) Insulin dependent diabetes mellitus Status: Chronic (10) Falls Status: Chronic (11) Pneumonia Status: Suspected - Respiratory Orders None Smoking Cessation: Smoking cessation has been advised. For more information, call the [place] Tobacco Quit Line at 8-096-MFIU-NOW. - Treatments Skin tear care topically daily PRN per policy - Diet Orders No Concentrated Sweets, Cardiac CERTIFICATION: I certify that the transfer of the above named patient to an Extended Care Facility is necessary for the continuing treatment of the diagnosis listed. The above information is true and accurate reflection of patient's current condition. Confidential - Redisclosure prohibited without a patient's written consent.
--- NOTE | 2018-11-05 08:03 | Discharge Summary ---
<Ruddy Jacinto S - Last Filed: 11/05/18 10:59> - NOTES TO OUTPATIENT PROVIDER Notes to Outpatient Provider: F/U with PCP in 1 week after d/c. Prednisone burst finished while in hospital. Pt will be d/c with no abx. F/U with cardiology 1-[address] showed Abnormal right paramediastinal soft tissue attenuation which is worrisome for neoplasm. Findings also completely related to treated neoplasm with radiation changes. Correlation is recommended. Comparison with prior studies would be helpful. Recommend f/u of the soft tissue mass as an outpatient. Recommend adjusting long acting insulin as needed, was on 20 U BID while here. Please see hospital course for the insulin sliding scale d [place]. Orders not resulted at time of discharge: Pending orders 10/29/18 18:19 Culture,Sputum with Gram Stain [RM] Routine Legionella Antigen [RM] Routine Streptococcal pneumoniae urin antigen [S. Pneumoniae Antigen] [RM] Routine 10/31/18 06:50 EKG [ECG 12 lead ECG] [ECG] Stat Date of Encounter: 11/05/18 Time of Encounter: 09:17 - Discharge Diagnosis (1) Acute respiratory failure with hypoxia Priority: Primary Status: Resolved (2) Elevated troponin Priority: Secondary Status: Acute (3) Pneumonia Priority: Secondary Status: Suspected Qualifiers: Pneumonia type: due to unspecified organism Laterality: unspecified laterality Lung location: unspecified part of lung Qualified Code(s): J18.9 - Pneumonia, unspecified organism (4) URI (upper respiratory infection) Priority: Secondary Status: Acute Qualifiers: URI type: unspecified URI Qualified Code(s): J06.9 - Acute upper respiratory infection, unspecified (5) CAD (coronary artery disease) Priority: Secondary Status: Chronic Qualifiers: Coronary Disease-Associated Artery/Lesion type: unspecified vessel or lesion type [place] vs. transplanted heart: [place] heart Associated angina: angina presence unspecified Qualified Code(s): I25.10 - Atherosclerotic heart disease of [place] coronary artery without angina pectoris (6) Chronic kidney disease, stage 3 Priority: Secondary Status: Chronic (7) Falls Priority: Secondary Status: Chronic Qualifiers: Encounter type: initial encounter Qualified Code(s): W19.XXXA - Unspecified fall, initial encounter (8) Hypertension Priority: Secondary Status: Chronic Qualifiers: Hypertension type: essential hypertension Qualified Code(s): I10 - Essential (primary) hypertension (9) Insulin dependent diabetes mellitus Priority: Secondary Status: Chronic (10) DVT prophylaxis Priority: Secondary Status: Acute Hospital course: Ms. Jacinto is a 78 year old female with PMH of CAD s/p CABG, IDDM, CKD stage III, remote lung and breast cancer, HTN, CVA s/p craniotomy presented as a tr ansfer from [place] for evaluation of elevated troponin. Patient initially presented to [place] due to weakness and chills. She reported having fell multiple times in the past few days. She reportedly had several day history of dry cough, chills, night sweats. At [place] ED she waas found to have O2 saturation of 89% and after 3 L O2 improved to 97%. Troponin was 0.174 and patient was without chest pain. EKG showed sinus rhythm with first degree av block, and non-specific ST changes with T wave inversions in II, III, avf. She had an elevated creatinine at 2.20, and baseline is about 1.4. Lactic acid was within normal limits, afebrile, WBC borderline elevated at 11k. She was started on a heparin drip at transfer hospital, given one liter normal saline, Xopenex, and IV protonix. Patient currently denies any CP, SOB. She still has persistent dry cough and complains of sinus congestion and rhinorrhea. Imaging chest CT showed Abnormal right paramediastinal soft tissue attenuation which is worrisome for neoplasm. Findings also completely related to treated neoplasm with radiation changes. Correlation is recommended. Comparison with prior studies would be helpful. Dependent lower lobe consolidation, greatest within the medial right lower lobe, atelectasis or pneumonia. XR chest showed patchy bilateral airspace disease. Multifocal pneumonia is primarily considered, but pulmonary edema is also a differential consideration. Cardiology saw the patient while in the hospital. They said that in the setting of mild, adynamic troponins (0.13 --> 0.09) with CHRISTIAN, respiratory failure, and PNA. TTE with LVEF preserved, no wall motion abnormalities. Troponins demand ischemia, NO cardiac rehab consult warranted. Consider outpatient stress test. Cardiology signed off and recommended outpatient follow up. Appointment to be made. The patient was given azithromycin and rocephin x 5 days while in the hospital. She was started on a prednisone burst 40mg PO daily and completed in the hospital while awaiting placement. The pt is medically stable for discharge and will be discharged pending placement. Recommend adjusting long acting insulin as needed, was on 20 U BID while here. She was also on high dose sliding scale while in the hospital with widely fluctuating blood sugars. Our scale listed below: Fingerstick blood glucose 141-180: 6 U SQ 181-220: 8U SQ 221-260: 10 U SQ 261-300: 12 U SQ 301-350: 14U SQ 351-400: 16 U SQ >400: 18 U SQ Discharge discussed with: patient, nurse, social work Time spent discussing smoking cessation with patient: 3 to 10 minutes - Time Spent with Patient Total time spent providing and/or coordinating discharge services: Time spent: Greater than 30 minutes - Discharge Medications Prescriptions: Continued Acetaminophen [Tylenol] 1,000 mg PO Q6H PRN PRN Reason: Pain Allopurinol [Zyloprim] 300 mg PO DAILY Atorvastatin [Lipitor] 40 mg PO HS Carvedilol [Coreg] 25 mg PO BID Cetirizine HCl [24Hour Allergy] 5 mg PO DAILY Ergocalciferol (VITAMIN D2) [Vitamin D2] 50,000 unit PO TU Gabapentin [Neurontin] 300 mg PO TID PRN PRN Reason: Pain hydrALAZINE [HydrALAZINE] 25 mg PO BID Insulin Glargine,Hum.rec.anlog [Lantus Solostar] 45 unit SQ DAILY Pantoprazole Sodium [Protonix] 40 mg PO DAILY Nitroglycerin 0.3 mg SL Q5MIN PRN PRN Reason: Chest Pain Magnesium Oxide [Magnesium] 400 mg PO BID Fluticasone Propionate Nasal [Flonase] 2 spray NS DAILY PRN PRN Reason: Allergy Symptoms Glimepiride [Amaryl] 4 mg PO DAILY Citalopram Hydrobromide [Celexa] 30 mg PO DAILY Aspirin Enteric Coated [Aspirin EC] 81 mg PO DAILY Montelukast [Singulair] 10 mg PO DAILY LevETIRAcetam [Keppra] 750 mg PO BID Albuterol Sulfate [Albuterol Inhaler] 2 puff IH Q4HR PRN #1 hfa.aer.ad PRN Reason: Wheezing Home Medications: Albuterol Sulfate [Albuterol Inhaler] 2 puff IH Q4HR PRN #1 hfa.aer.ad 12/06/15 [Rx] Aspirin Enteric Coated [Aspirin EC] 81 mg PO DAILY 12/06/15 [History] Citalopram Hydrobromide [Celexa] 30 mg PO DAILY 12/06/15 [History] Fluticasone Propionate Nasal [Flonase] 2 spray NS DAILY PRN 12/06/15 [History] Glimepiride [Amaryl] 4 mg PO DAILY 12/06/15 [History] LevETIRAcetam [Keppra] 750 mg PO BID 12/06/15 [History] Magnesium Oxide [Magnesium] 400 mg PO BID 12/06/15 [History] Montelukast [Singulair] 10 mg PO DAILY 12/06/15 [History] Acetaminophen [Tylenol] 1,000 mg PO Q6H PRN 10/29/18 [History] Allopurinol [Zyloprim] 300 mg PO DAILY 10/29/18 [History] Atorvastatin [Lipitor] 40 mg PO HS 10/29/18 [History] Carvedilol [Coreg] 25 mg PO BID 10/29/18 [History] Cetirizine HCl [24Hour Allergy] 5 mg PO DAILY 10/29/18 [History] Ergocalciferol (VITAMIN D2) [Vitamin D2] 50,000 unit PO TU 10/29/18 [History] Gabapentin [Neurontin] 300 mg PO TID PRN 10/29/18 [History] Insulin Glargine,Hum.rec.anlog [Lantus Solostar] 45 unit SQ DAILY 10/29/18 [History] Nitroglycerin 0.3 mg SL Q5MIN PRN 10/29/18 [History] Pantoprazole Sodium [Protonix] 40 mg PO DAILY 10/29/18 [History] hydrALAZINE [HydrALAZINE] 25 mg PO BID 10/29/18 [History] Allergies/Adverse Reactions: Allergy/AdvReac Type Severity Reaction Status Date / Time acetaminophen [From [place]] Allergy Rash Verified 12/06/15 12:01 ciprofloxacin [From Cipro] Allergy See Verified 12/06/15 12:01 Comments codeine Allergy See Verified 12/06/15 12:01 Comments hydrocodone [From [place]] Allergy Rash Verified 12/06/15 12:01 Iodinated Contrast- Oral and Allergy See Verified 12/06/15 12:01 IV Dye Comments [Iodinated Contrast Media - IV Dye] levofloxacin [From Levaquin] Allergy See Verified 12/06/15 12:01 Comments losartan [From Cozaar] Allergy See Verified 12/06/15 12:01 Comments Date of admission: 10/29/18 20:05 Primary care physician: PCP NONE Consults: 10/29/18 18:17 Consult to Occupational Therapy [CONS] Routine Comment: Evaluate, develop and implement POC Reason for Consult: Evaluate, develop and implement POC Does patient have active BEDREST order?: No Is patient medically & hemodynamically stable?: Yes Consult to Physical Therapy [CONS] Routine Comment: Evaluate, develop and implement POC Reason for Consult: Disposition planning. Therapy - weakness in bed. Does patient have active BEDREST order?: No Is patient medically & hemodynamically stable?: Yes 10/29/18 18:26 Consult to Cardiology [CONS] Routine Comment: Consulting Provider: Cardiology Nia Reason for Consult: elevated troponin Call Completed: No Discharging clinician: Ruddy Jacinto Anticipated date of discharge: 11/05/18 - Constitutional Vitals: Temp Pulse Resp BP Pulse Ox 97.7 F 75 19 150/77 95 11/05/18 07:44 11/05/18 07:44 11/05/18 07:44 11/05/18 07:44 11/05/18 07:44 General appearance: Present: A&O X 3, no acute distress, answers questions appropriately Exam: Gen: NAD, confused, laying in bed ENT: MM dry, neck warm, supple, no LA Head: NC/AT, scleral anictetic CVS: RRR, no mrg, CTA Lungs: decreased breath sounds, wheezing faint Abd: soft, NT/ND, obese Ext: no edema, no cyanosis. Skin: warm, dry, intact . - Patient Status Disposition: Transfer SNF Condition: Good Functional capacity at discharge: uses cane/walker Overall status at discharge: patient is progressing back to baseline - Discharge Instructions Follow Up With: René Fischer MD [Partnered Physician] - Orlnado Morgan DO [Resident] - Roxana Sinclair MD [Partnered Physician] - - Diet and Activity Activity: as per physical therapy, increase activity as tolerated Diet: advance to your usual diet, diabetic diet <Anais Lunsford - Last Filed: 11/05/18 12:04> Orders not resulted at time of discharge: Pending orders 10/29/18 18:19 Culture,Sputum with Gram Stain [RM] Routine Legionella Antigen [RM] Routine Streptococcal pneumoniae urin antigen [S. Pneumoniae Antigen] [RM] Routine 10/31/18 06:50 EKG [ECG 12 lead ECG] [ECG] Stat Date of Encounter: 11/05/18 - Discharge Diagnosis (1) Acute respiratory failure with hypoxia Status: Resolved (2) Elevated troponin Status: Acute (3) Acute on chronic kidney failure Status: Acute Qualifiers: Acute renal failure type: unspecified Chronic kidney disease stage: stage 3 (moderate) Qualified Code(s): N17.9 - Acute kidney failure, unspecified; N18.3 - Chronic kidney disease, stage 3 (moderate) (4) Chronic kidney disease, stage 3 Status: Chronic (5) Weakness Status: Chronic (6) Hypertension Status: Chronic Qualifiers: Hypertension type: essential hypertension Qualified Code(s): I10 - Essential (primary) hypertension (7) GERD (gastroesophageal reflux disease) Status: Chronic Qualifiers: Esophagitis presence: esophagitis presence not specified Qualified Code(s): K21.9 - Gastro-esophageal reflux disease without esophagitis (8) Coronary artery disease Status: Acute Qualifiers: Coronary Disease-Associated Artery/Lesion type: [place] artery [place] vs. transplanted heart: [place] heart Associated angina: without angina Qualified Code(s): I25.10 - Atherosclerotic heart disease of [place] coronary artery without angina pectoris (9) Insulin dependent diabetes mellitus Status: Chronic (10) Falls Status: Chronic Qualifiers: Encounter type: initial encounter Qualified Code(s): W19.XXXA - Unspecified fall, initial encounter (11) Pneumonia Status: Suspected Qualifiers: Pneumonia type: due to unspecified organism Laterality: unspecified laterality Lung location: unspecified part of lung Qualified Code(s): J18.9 - Pneumonia, unspecified organism Hospital course: Ms. Jacinto is a 78 year old female - Time Spent with Patient Total time spent providing and/or coordinating discharge services: Time spent: Greater than 30 minutes (40 min) Date of admission: 10/29/18 20:05 Primary care physician: PCP NONE Consults: 10/29/18 18:17 Consult to Occupational Therapy [CONS] Routine Comment: Evaluate, develop and implement POC Reason for Consult: Evaluate, develop and implement POC Does patient have active BEDREST order?: No Is patient medically & hemodynamically stable?: Yes Consult to Physical Therapy [CONS] Routine Comment: Evaluate, develop and implement POC Reason for Consult: Disposition planning. Therapy - weakness in bed. Does patient have active BEDREST order?: No Is patient medically & hemodynamically stable?: Yes 10/29/18 18:26 Consult to Cardiology [CONS] Routine Comment: Consulting Provider: Cardiology Nia Reason for Consult: elevated troponin Call Completed: No - Constitutional Vitals: Temp Pulse Resp BP Pulse Ox 97.7 F 75 16 150/77 94 11/05/18 07:44 11/05/18 07:44 11/05/18 07:51 11/05/18 07:51 11/05/18 07:51 - Attending Attestation I examined this patient and my medical decision-making was reviewed with the Resident Physician Dr Jacinto. I agree with the documented findings, disposition and treatment plan as described except to the extent set forth below. Ms Jacinto was admitted with acute hypoxic resp failure. She was found on imaging of chest to have lung neoplasm, post radiation changes vs Lower lobe pna. She was treated for pna and ARF resolved. She will need outpt follow up of lung findings and a referral to pulmonology has been made. awake, pleasant. denies any sob on room air, no further coughing. denies any chest pain, pressure. gen- alert, awake,appears stated age cv- reg rate and rhythm, normal s1,s2, no murmurs appreciated, no le edema lungs- ctabl, no wheezing, rhonchi or crackles, normal resp effort on room air abd- soft, non tender, non distended, + bs neuro- AAOxperson, place, situation Acute Hypoxic resp failure, resolved Suspect 2/2 lower lobe pna, organism not known CT findngs with soft tissue attenuation which could be worrisome for neoplasm, be related to post radiation changes, or pna -abx course complete, no o2 requirement at discharge, outpt pulm referral Pna, organism unknown -s/p course of azithro + rocephin (keflex) and steroids Trop Elevation 2/2 demand ischemia in setting of hypoxia most likely -evaulated by cards this admit, rec for outpt stress test, cards referral made CHRISTIAN on CKD III, resolved DM with labile bs -bs vary on dc from 170s-380s -given she fluctuates so greatly would recommend cont standing long acting + SSI and further adjustments at SNF to long acting -was getting 40 units levemir total daily here, may resume home lantus 45 units daily upon dc + ssi -fu with PCP further diagnoses and plan as noted by resident time spent on dc 40 min
[2018-11-05] MEDS: Azithromycin 250 MG TABLET PO SCH (08:10)
[2018-11-05] MEDS: Aspirin Enteric Coated 81 MG Tablet PO SCH (08:10)
[2018-11-05] MEDS: levETIRAcetam 250 MG TABLET PO SCH (08:10)
[2018-11-05] MEDS: Magnesium Oxide 400 MG TABLET PO SCH (08:10)
[2018-11-05] MEDS: Loratadine 10 MG TABLET PO SCH (08:10)
[2018-11-05] MEDS: hydrALAZINE 25 MG TABLET PO SCH (08:10)
[2018-11-05] MEDS: predniSONE 20 MG TABLET PO SCH (08:11)
[2018-11-05] MEDS: cephALEXin 500 MG CAPSULE PO SCH (08:11)
[2018-11-05] MEDS: Cholecalciferol (D-3) 1,000 UNIT TABLET PO SCH (08:11)
[2018-11-05] MEDS: Insulin DETEMIR 100 UNIT/ML X5UNITS SQ SCH (08:18)
[2018-11-05 12:09] VITALS: BP 143/85
[2018-11-05] MEDS ORDERED: Artificial Tears SOLN 15 ML BOTTLE BOTH EYES SCH (13:00)
== END 2018-11-05 13:39 | DRG 133 ==
LOC: 2NENU → SUATTDRO 20:05 → 2NENU 10-30 18:07 → ICNU 10-31 01:48 → 2NENU 10-31 13:14
PROVIDERS: ADMIT Student in an Organized Health Care Education/Training Program; ATTEND Internal Medicine